=== PATIENT | male | born 1960 | race Caucasian/White ===

== ENCOUNTER 2024-01-18 01:31 | Inpatient (IN) ==
[2024-01-18] MEDS ORDERED: Patient's ALLERGY Info needs ENTERED STA (01:38)
--- NOTE | 2024-01-18 02:04 | Emergency Department Note ---
Impression & Plan Bacteremia, Urinary tract infection, Elevated troponin, Acute non-ST elevation myocardial infarction (NSTEMI), Pneumonia involving left lung ED Provider Note NAME: YANIQUE DUGGAN AGE: 63 SEX: M : 1960 ARRIVES VIA: Walk-In INFORMANT: Patient, ED PROVIDER(S): Cornelio Sauceda MD CHIEF COMPLAINT: Chills, call back, bacteremia MEDICAL DECISION MAKING: Patient presents due to concern for bacteremia. IV was established and blood work was obtained. Repeat urinalysis and blood cultures deferred at this time as they were obtained earlier in the day. Patient did have the blood work completed along with a procalcitonin and lactic acid. Patient was ordered 2 L of IV fluids and Ofirmev. I did speak with the main hospital pharmacist Lambert Reynolds and after reviewing the blood culture and recommend starting ertapenem at this time. MRSA swab also added as a precaution. Additional 500 of IV fluids ordered to be for 30 cc/kg bolus. Patient's blood work shows a normal white count hemoglobin 13.4 with a normal platelet count. Kidney function unremarkable hyponatremia at 130 but patient with elevated blood sugar at 515. Magnesium of 1.6. Patient's troponin is 4063. Patient's EKG does not show obvious STEMI. Further history was gathered and the patient does have a prior history of CAD status post stent 2008. Patient not taking medications other than aspirin.Patient was currently without chest pain or shortness of breath. Patient states that he was having some chest pains when he had his chills earlier in the evening but currently does not have it. The patient denies any shortness of breath or cough. Screening chest x-ray was first was performed which showed concern for left-sided pneumonia. Given the patient's borderline hypoxia and elevated troponin a CT angiography of the chest was ordered. BioFire also added. I did speak with the on-call hospital service Dr. Shell and the patient was admitted to the medicine service. Heparin ordered by the inpatient service. BioFire negative. CT angiography of the chest that showed left-sided pneumonia without evidence of PE. Critical Care: I have personally spent 35 minutes of critical care time in direct management of this patient. This includes bedside care, interpretation of diagnostic studies, and testing, discussion with consultants, patient, and family members, and other require inpatient management activities. This 35 minutes is in excess of all separately billable procedures. Discussion w/ other healthcare providers: Jay Reynolds, Pharm.D. Dr. Shell inpatient medicine service [facility] Prior /Outside records reviewed: None Differential diagnosis: Bacteremia, viral syndrome, otitis, pharyngitis, pneumonia, influenza, meningitis, urinary tract infection, sepsis, bacteremia, as well as other pathologies. Diagnostics, as interpreted by me: ECG: Sinus tachycardia, rate of 136, normal intervals, normal axis no obvious STEMI. Cardiac monitoring: An order was placed for continuous cardiac monitoring. The monitor shows a rate of 136 with tachycardic and regular rhythm. Patient was placed on pulse oximetry Medical decision rules: None Imaging studies: I informally interpreted the patient's chest x-ray shows concern for left-sided pneumonia with formal report to follow. HPI: Patient presents due to concern for positive blood culture. The patient was called and advised to come back after having a positive blood culture. Patient denies any shortness of breath or chest pains. Patient denies any falls or trauma. The patient reports that he did have some chills this past evening and felt like he was having associated sweats. Patient had been seen earlier in the day for similar symptoms. The patient did note that last week he had some increased urination but did not think as much of it but then started having associated hematuria this past Tuesday. Patient states that he was out working on a project and had some increased hematuria so he stopped doing any heavy lifting. The patient has a prior history of kidney stones and thought it might be related to this although he was not having the associated back pain. Patient had been seen in the emergency department earlier in the day had fairly unremarkable workup with the exception of an elevated procalcitonin and was discharged on Bactrim. Patient states that he did take this this evening. Patient denies any abdominal pain or flank pain. PAST MEDICAL HISTORY: See Below PAST SURGICAL HISTORY: See Below SOCIAL HISTORY: See Below HOME MEDICATIONS: See Below ALLERGIES: See Below VITALS: See Below PHYSICAL EXAMINATION: GENERAL: NAD, non-toxic. EYE EXAM: Normal conjunctiva. PERRL, no anisocoria and EOM's grossly intact w/o pain. OROPHARYNX: Moist mucus membranes, grossly normal dentition. NECK: Trachea midline, no stridor. Supple, no nuchal rigidity, no adenopathy, non-tender. No signs of meningismus. FROM of the neck with good chin to chest and neck extension. LUNGS: Clear to auscultation. Normal chest wall mechanics. HEART: Tachycardic and regular, no MRG. ABDOMEN: Abdomen soft, non-tender, no masses, no rebound or guarding. BACK: No CVA TTP. SKIN: No rashes and no bruising. UPPER EXTREMITIES: Upper extremities are grossly normal. LOWER EXTREMITIES: Grossly normal, no edema. NEURO EXAM: A&O x3, cranial nerves II-XII grossly intact, normal speech, moves all 4 extremities. Past Med/Surg History Problem List (Updated 01/18/24 @ 05:30 by Cornelio Sauceda MD) Pneumonia involving left lung (Acute) Acute non-ST elevation myocardial infarction (NSTEMI) (Acute) Elevated troponin (Acute) Bacteremia (Acute) Hyperglycemia (Acute) Prostatitis (Acute) Urinary tract infection (Acute) Hematuria (Acute) Medical History Kidney stone Social History Smoking Status: Never smoker Preferred Language: Azeri Feels Safe at Home: Yes Allergies Allergies Allergy/AdvReac Type Severity Reaction Status Date / Time No Known Allergies Allergy Verified 01/18/24 03:35 Home Meds Previous Rx's Medication Instructions Recorded sulfamethoxazole 800 1 tab PO Q12H 14 days #28 tabs 01/17/24 mg-trimethoprim 160 mg tablet (Bactrim DS) Results & Data (ED) Vital Signs Vital Signs - 24 hr 01/18/24 01:38 01/18/24 02:00 01/18/24 02:04 Temperature 36.5 C 38.6 C H Temperature Source Temporal Artery Scan Oral Pulse Rate 151 H 135 H Pulse Rate from SpO2 Sensor 135 H Respiratory Rate 18 28 H Respiratory Effort / Characteristics Non-Labored Spontaneous Respiratory Depth Normal Respiratory Pattern Regular Blood Pressure 111/58 L 105/70 Blood Pressure Mean 75 84 Blood Pressure Position Lying Pulse Oximetry 93 91 Oxygen Delivery Method Room Air Room Air Oxygen Flow Rate Sepsis Recent Fever Within 48 Hours No Sepsis New/Unexplained Change in Mental Status No Sepsis Action Taken by Nursing No Action Required 01/18/24 02:04 01/18/24 02:30 01/18/24 03:00 Temperature Temperature Source Pulse Rate 137 H 129 H 123 H Pulse Rate from SpO2 Sensor 129 H 124 H Respiratory Rate 22 25 H Respiratory Effort / Characteristics Respiratory Depth Respiratory Pattern Blood Pressure Blood Pressure Mean Blood Pressure Position Pulse Oximetry 91 92 Oxygen Delivery Method Room Air Oxygen Flow Rate Sepsis Recent Fever Within 48 Hours Sepsis New/Unexplained Change in Mental Status Sepsis Action Taken by Nursing 01/18/24 03:21 01/18/24 03:42 01/18/24 03:54 Temperature Temperature Source Pulse Rate 127 H 117 H 117 H Pulse Rate from SpO2 Sensor 127 H 116 H 117 H Respiratory Rate 26 H 22 20 Respiratory Effort / Characteristics Respiratory Depth Respiratory Pattern Blood Pressure Blood Pressure Mean Blood Pressure Position Pulse Oximetry 92 96 97 Oxygen Delivery Method Room Air Nasal Cannula Nasal Cannula Oxygen Flow Rate 2 2 Sepsis Recent Fever Within 48 Hours Sepsis New/Unexplained Change in Mental Status Sepsis Action Taken by Nursing 01/18/24 03:57 01/18/24 03:59 01/18/24 04:12 Temperature 37.6 C H Temperature Source Oral Pulse Rate 119 H 118 H Pulse Rate from SpO2 Sensor 120 H 118 H Respiratory Rate 22 23 Respiratory Effort / Characteristics Respiratory Depth Respiratory Pattern Blood Pressure 99/69 L Blood Pressure Mean 79 Blood Pressure Position Pulse Oximetry 97 93 Oxygen Delivery Method Nasal Cannula Room Air Oxygen Flow Rate 2 Sepsis Recent Fever Within 48 Hours Sepsis New/Unexplained Change in Mental Status Sepsis Action Taken by [facility] Medications Current Medication List: was personally reviewed by me Laboratory Data Attestation: I reviewed the patient's lab results. 01/18/24 02:04 01/18/24 02:04 Lab Results 01/18/24 01/18/24 01/18/24 Range/Units 02:04 03:47 04:04 WBC 5.12 (4.8-10.8) K/ul RBC 4.57 L (4.70-6.10) M/uL Hgb 13.4 L (14.0-18.0) g/dl Hct 38.7 L (42.0-52.0) % MCV 84.7 (80.0-100.0) fL MCH 29.3 (25.0-34.0) pg MCHC 34.6 (32.0-36.0) g/dL RDW Std Deviation 35.8 L (36.4-46.3) fL RDW Coeff of [place] 11.9 (11.5-14.5) % Plt Count 131 (130-400) K/uL MPV 9.9 (9.4-12.4) fL Immature Gran % (Auto) 0.8 % Neut % (Auto) 85.5 % Lymph % (Auto) 4.3 % [place] % (Auto) 9.0 % Eos % (Auto) 0.0 % Baso % (Auto) 0.4 % Neut # (Auto) 4.38 (1.40-6.50) K/uL Lymph # (Auto) 0.22 L (1.20-3.40) K/uL [place] # (Auto) 0.46 (0.11-0.59) K/uL Eos # (Auto) 0.00 (0.00-0.50) K/uL Baso # (Auto) 0.02 (0.00-0.20) K/uL Immature Gran # (Auto) 0.04 (0.01-0.20) K/uL PT 10.8 (9.0-12.0) Seconds INR 1.0 (0.9-1.1) APTT 26 (21-31) Seconds PTT Ratio 1.0 Sodium 130 L (136-145) mmol/L Potassium 4.4 (3.5-5.1) mmol/L Chloride 97 L (98-107) mmol/L Carbon Dioxide 21 (21-32) mmol/L Anion Gap 12 H (3-11) BUN 24 H (6-23) mg/dl Creatinine 1.11 (0.6-1.4) mg/dl Est Cr Clr Drug Dosing 67.6 ml/min Est GFR ( Amer) 82.6 ml/min Est GFR (Non-Af Amer) 71.3 ml/min BUN/Creatinine Ratio 21.6 H (10-20) Glucose 515 H* (70-99(Fasting)) mg/dl Lactate 1.4 (0.4-2.0) mmol/L Calcium 8.7 (8.6-10.3) mg/dl Magnesium 1.6 L (1.7-2.4) mg/dl Total Bilirubin 0.4 D (0.2-1.0) mg/dl Direct Bilirubin 0.2 (0-0.2) mg/dl AST 34 (13-39) U/L ALT 19 (7-52) U/L Alkaline Phosphatase 102 (34-104) U/L Troponin I High Sens 4063.1 H* 7103.5 H* D (0-20) pg/ml Total Protein 6.1 (6.0-8.3) gm/dl Albumin 3.5 (3.4-5.0) gm/dl Procalcitonin 9.39 H (0-0.5) ng/ml Adenovirus (PCR) Not Detected (NotDetected) B. pertussis DNA (PCR) Not Detected (NotDetected) B.parapertussis DNA PCR Not Detected (NotDetected) C. pneumoniae DNA (PCR) Not Detected (NotDetected) Coronavirus OC43 (PCR) Not Detected (NotDetected) Coronavirus HKU1 (PCR) Not Detected (NotDetected) Coronavirus 229E (PCR) Not Detected (NotDetected) SARS-CoV-2 (PCR) Not Detected (NotDetected) Coronavirus NL63 (PCR) Not Detected (NotDetected) Human Metapneumovir PCR Not Detected (NotDetected) Influenza Type A (PCR) Not Detected (NotDetected) Influenza Type B (PCR) Not Detected (NotDetected) M. pneumoniae (PCR) Not Detected (NotDetected) Parainfluenza 1 (PCR) Not Detected (NotDetected) Parainfluenza 2 (PCR) Not Detected (NotDetected) Parainfluenza 3 (PCR) Not Detected (NotDetected) Parainfluenza 4 (PCR) Not Detected (NotDetected) RSV (PCR) Not Detected (NotDetected) Entero/Rhino (PCR) Not Detected (NotDetected) Administered Medications Magnesium Sulfate/Dextrose (Magnesium Sulfate / D5w) 1 gm in 100 mls @ 50 mls/hr IV Q2H MIN Stop: 01/18/24 07:14 Last Admin: 01/18/24 03:40 Dose: 50 mls/hr Documented By: GIL Heparin Sodium/Dextrose (Heparin Sodium/Dextrose) 25,000 units in 500 mls @ 25 mls/hr IV .Q20H [facility]; Protocol Stop: 02/17/24 03:29 Last Admin: 01/18/24 03:44 Dose: 1,250 units/hr, 25 mls/hr Documented By: GIL Co-signed By: EMB Discontinued Medications Aspirin (Aspirin 81 Mg Chew) 324 mg PO NOW STA Stop: 01/18/24 03:13 Last Admin: 01/18/24 03:39 Dose: Not Given Documented By: GIL Aspirin (Aspirin 325 Mg Ectab) 325 mg PO NOW STA Stop: 01/18/24 03:44 Last Admin: 01/18/24 03:58 Dose: 325 mg Documented By: GIL Carvedilol (Carvedilol 3.125 Mg Tab) 3.125 mg PO NOW ONE Stop: 01/18/24 03:13 Last Admin: 01/18/24 03:20 Dose: Not Given Documented By: GIL Heparin Sodium/Dextrose (Heparin Iv Adult Wt-Based Standard *No* Initial Bolus Protocol) 1 each IV ONE STA; Protocol Stop: 01/18/24 03:15 Last Admin: 01/18/24 03:41 Dose: 1 each Documented By: GIL Sodium Chloride (Nss) 1,000 mls @ 999 mls/hr IV .Q1H1M MIN Stop: 01/18/24 04:00 Last Infusion: 01/18/24 03:50 Dose: Infused Documented By: Admin: 01/18/24 02:49 Dose: 999 mls/hr Documented By: Infusion: 01/18/24 02:49 Dose: Infused Documented By: Admin: 01/18/24 02:18 Dose: 999 mls/hr Documented By: GIL Acetaminophen (Ofirmev) 1,000 mg in 100 mls @ 400 mls/hr IV NOW STA Stop: 01/18/24 02:12 Last Infusion: 01/18/24 02:48 Dose: Infused Documented By: Admin: 01/18/24 02:18 Dose: 400 mls/hr Documented By: GIL Piperacillin Sod/Tazobactam Sod (Zosyn) 4.5 gm in 100 mls @ 200 mls/hr IV NOW ONE Stop: 01/18/24 02:30 Last Admin: 01/18/24 02:13 Dose: Not Given Documented By: GIL Ertapenem (Invanz) 10 mls @ 2 mls/min IV NOW STA Stop: 01/18/24 02:08 Last Admin: 01/18/24 02:18 Dose: 2 mls/min Documented By: GIL Sodium Chloride (Nss) 500 mls @ 999 mls/hr IV .Q31M ONE Stop: 01/18/24 02:38 Last Infusion: 01/18/24 03:50 Dose: Infused Documented By: Admin: 01/18/24 02:49 Dose: 999 mls/hr Documented By: GIL Insulin Human Regular (Novolin-R Insulin Per Unit Charge) 5 units IV NOW STA Stop: 01/18/24 03:03 Last Admin: 01/18/24 03:37 Dose: 5 units Documented By: GIL Co-signed By: LAKEISHA Ioversol (Optiray 320 125ml) 125 ml IV ONCE ONE Stop: 01/18/24 03:20 Last Admin: 01/18/24 03:19 Dose: 118 ml Documented By: JESUS Imaging Data Radiologist's Impression: Chest CTA 01/18/24 03:04 Exam(s): CTA CHEST IV Amt: 118 ml optiray 320 EXAM: CT Angiography Chest With Intravenous Contrast CLINICAL HISTORY: Reason for exam: PE. TECHNIQUE: Axial computed tomographic angiography images of the chest with intravenous contrast. CTDI is 36.96 mGy and DLP is 604.23 mGy-cm. Automated exposure control was utilized for the study. A dose lowering technique was utilized adhering to the principles of ALARA. MIP reconstructed images were created and reviewed. COMPARISON: No relevant prior studies available. FINDINGS: Pulmonary arteries: Unremarkable. No pulmonary embolism. Aorta: Atherosclerotic changes of the aorta. No thoracic aortic aneurysm. Lungs: Patchy ground-glass airspace consolidation throughout the LEFT lung, consistent with multilobar pneumonia. Pleural space: Unremarkable. No significant effusion. No pneumothorax. Heart: Cardiomegaly. No significant pericardial effusion. No evidence of RV dysfunction. Bones/joints: Degenerative changes of the spine. No acute fracture. No dislocation. Soft tissues: Unremarkable. Lymph nodes: Unremarkable. No enlarged lymph nodes. Liver: Hepatic steatosis. IMPRESSION: 1. No pulmonary embolism. 2. Patchy ground-glass airspace consolidation throughout the LEFT lung, consistent with multilobar pneumonia. Electronically signed by: Jona Wadsworth MD 01/18/24 04:15 AM Discharge Plan Visit Data Chief Complaint: Infection Stated Complaint: ANTIBIOTICS RECALL ED Provider: Cornelio Sauceda Discharge Problem: Bacteremia, Urinary tract infection, Elevated troponin, Acute non-ST elevation myocardial infarction (NSTEMI), Pneumonia involving left lung Forms Stand Alone Forms: [employer] Prescriptions Prescriptions: No Action sulfamethoxazole-trimethoprim [Bactrim DS] 800-160 mg tablet 1 tab PO Q12H 14 Days Qty: 28 0RF Referrals Referrals: Ander Price DO [Primary Care Provider] - Discharge Problem: Urinary tract infection Qualifiers: Urinary tract infection type: site unspecified Hematuria presence: with hematuria Qualified Code(s): N39.0 - Urinary tract infection, site not specified Pneumonia involving left lung Qualifiers: Pneumonia type: due to unspecified organism Lung location: unspecified part of lung Qualified Code(s): J18.9 - Pneumonia, unspecified organism
[2024-01-18] MEDS: PIPERACILLIN/TAZOBACTAM 4.5 GM/100 ML BAG IV ONE (02:13)
[2024-01-18] MEDS: ERTAPENEM SODIUM 10 ML IV STA (02:18)
[2024-01-18] MEDS: SODIUM CHLORIDE 0.9% 1,000 ML IV SCH ×2 (02:18→06:42)
[2024-01-18] MEDS: ACETAMINOPHEN 1,000 MG/100 ML VIAL IV STA (02:18)
[2024-01-18 02:36] LABS: Basophils # (auto) 0.02 K/uL (0.00-0.20); Basophils % (auto) 0.4 %; Hematocrit (blood only) 38.7 % (42.0-52.0); Hemoglobin 13.4 g/dl (14.0-18.0); Immature Granulocytes # (auto) 0.04 K/uL (0.01-0.20); Immature Granulocytes % (auto) 0.8 %; Lymphocytes # (auto) 0.22 K/uL (1.20-3.40); Lymphocytes % (auto) 4.3 %; Mean Corpuscular Hemoglobin 29.3 pg (25.0-34.0); Mean Corpuscular Hgb Conc 34.6 g/dL (32.0-36.0); Mean Corpuscular Volume 84.7 fL (80.0-100.0); Mean Platelet Volume 9.9 fL (9.4-12.4); Monocytes # (auto) 0.46 K/uL (0.11-0.59); Neutrophils # (auto) 4.38 K/uL (1.40-6.50); Neutrophils % (auto) 85.5 %; Platelet Count 131 K/uL (130-400); RDW Coefficient of Variation 11.9 % (11.5-14.5); RDW Standard Deviation 35.8 fL (36.4-46.3); Red Blood Count 4.57 M/uL (4.70-6.10); White Blood Count 5.12 K/ul (4.8-10.8)
[2024-01-18] MEDS: SODIUM CHLORIDE 0.9% 500 ML IV ONE (02:49)
[2024-01-18 03:01] LABS: Albumin Level 3.5 gm/dl (3.4-5.0); BUN Creatinine Ratio 21.6 (10-20); Bilirubin Direct 0.2 mg/dl (0-0.2); Bilirubin,Total 0.4 mg/dl (0.2-1.0); Calcium 8.7 mg/dl (8.6-10.3); Creatinine Clr Calc Pharmacy 67.6 ml/min; Est GFR (African American) 82.6 ml/min; Est GFR (Non-African American) 71.3 ml/min; Magnesium 1.6 mg/dl (1.7-2.4); Potassium 4.4 mmol/L (3.5-5.1); Total Protein 6.1 gm/dl (6.0-8.3); Troponin I High Sensitivity 4063.1 pg/ml (0-20)
[2024-01-18] MEDS: OPTIRAY 320 125ml IV ONE (03:19)
[2024-01-18] MEDS: carvediloL 3.125 MG TAB PO ONE (03:20)
[2024-01-18] MEDS: NovoLIN-R INSULIN PER UNIT CHARGE IV STA (03:37)
[2024-01-18] MEDS: ASPIRIN 81 MG CHEW PO STA (03:39)
[2024-01-18] MEDS: MAGNESIUM SULFATE / D5W 1 GM/100 ML BAG IV SCH (03:40)
[2024-01-18] MEDS: Heparin IV Adult Wt-Based Standard *NO* INITIAL Bolus Protocol IV STA (03:41)
[2024-01-18 03:44] LABS: Partial Thromboplastin Time 26 Seconds (21-31); Prothrombin Time 10.8 Seconds (9.0-12.0)
[2024-01-18] MEDS: HEPARIN SODIUM/DEXTROSE 25,000 UNITS/500 ML BAG IV SCH (03:44)
--- NOTE | 2024-01-18 03:50 | History & Physical Report ---
Date of Service January 18, 2024 Assessment & Plan (1) Bacteremia: Plan: 63-year-old male with past med history significant for diabetes, history of multiple kidney stones, hypertension and CAD s/p stent in 2008 as per patient but currently not taking any medication except aspirin for last few months came to the ER in the morning because of hematuria last Tuesday and Tuesday and a lot of shaking chills and was worried about kidney stone and found to have UTI and possible prostatitis and hyperglycemia and was also tachycardic. Received fluids and Rocephin and was discharged on p.o. Bactrim as patient seemed to have appointment with his family doctor the next day. But the blood cultures came back positive for gram-negative bacilli and patient was called to come back to ER. Patient spiking temperature in the ER. Heart rate in 130s. Denies any ch est pain or shortness of breath. Denies palpitations. Denies any headache currently. No runny nose or sore throat. No earache. Vision is okay. Currently no nausea. Patient states initially had back and flank pain but currently no pains. Has some burning micturition. Currently no hematuria. Normal bowel movements. No swelling in the legs. No rash. Patient states because he lost weight his blood pressure is okay currently. Used to take Januvia and metformin but stopped 2 months ago. Used to be on take statin and generic Coreg but stopped about a month ago. Says he has an appointment tomorrow with his family doctor and he wants to start back on all the required medications. Bacteremia Gram-negative bacilli bacteremia Acute UTI Possible sepsis Has fever and tachycardia and leukocytosis Lactic acid okay at 1.4 Aggressive fluids Received Invanz will continue with meropenem CTA chest came back as multifocal pneumonia Added Doxy Resp biofire negative Follow the cultures Close monitor Non-ST elevated [place] Troponin 4063 Patient asymptomatic History of CAD s/p stent in 2008 as per patient Except aspirin not taking other medications Started on IV heparin Continue aspirin Start Coreg 3.125 mg twice daily with holding parameters and Lipitor 40 mg daily Follow serial cardiac enzymes and echo in the lipid profile N.p.o. Cardiac consult Tachycardia Possibly from sepsis Lactic acid okay at 1.4 Possible from dehydration from hyperglycemia and also stopped taking Coreg about a month ago Getting fluids and antibiotics Starting Coreg as above. Will closely monitor CTA chest No PE, Follow echo Hyperglycemia History of diabetes Stopped taking his metformin and Januvia about 2 months ago Will give a dose of IV insulin [address] on Lantus and sliding scale Monitor blood sugars closely Follow HbA1c levels Glycemic pharmacy consult Possible prostatitis Kidney stones CT scan done in the morning showed nonobstructing bilateral nephrolithiasis No ureteral calculi or hydronephrosis Prostatomegaly with findings of chronic outlet obstruction Will consult urology in a.m. Mild splenomegaly on CAT scan Needs follow-up DVT prophylaxis IV heparin Disposition Telemetry Full code. History of Present Illness Chief Complaint: Urinary symptoms and bacteremia Primary Care Provider: Ander Price DO 63-year-old male with past med history significant for diabetes, history of multiple kidney stones, hypertension and CAD s/p stent in 2008 as per patient but currently not taking any medication except aspirin for last few months came to the ER in the morning because of hematuria last Tuesday and Tuesday and a lot of shaking chills and was worried about kidney stone and found to have UTI and possible prostatitis and hyperglycemia and was also tachycardic. Received fluids and Rocephin and was discharged on p.o. Bactrim as patient seemed to have appointment with his family doctor the next day. But the blood cultures came back positive for gram-negative bacilli and patient was called to come back to ER. Patient spiking temperature in the ER. Heart rate in 130s. Denies any chest pain or shortness of breath. Denies palpitations. Denies any headache currently. No runny nose or sore throat. No earache. Vision is okay. Currently no nausea. Patient states initially had back and flank pain but currently no pains. Has some burning micturition. Currently no hematuria. Normal bowel movements. No swelling in the legs. No rash. Patient states because he lost weight his blood pressure is okay currently. Used to take Januvia and metformin but stopped 2 months ago. Used to be on take statin and generic Coreg but stopped about a month ago. Says he has an appointment tomorrow with his family doctor and he wants to start back on all the required medications. Past medical history. As mentioned above. Past surgical history. Lithotripsy twice cardiac cath status post and placement. 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 Social history. Smokes cigars once in a while. Drinks 2 beers couple times a week. Denies any drug use Family history. Mother had breast cancer. Father had heart disorder. Father had heart disorder. Allergies Allergy/AdvReac Type Severity Reaction Status Date / Time No Known Allergies Allergy Verified 01/18/24 03:35 Home Medications Medication Instructions Recorded Confirmed Type sulfamethoxazole 800 1 tab PO Q12H 14 days #28 tabs 01/17/24 Rx mg-trimethoprim 160 mg tablet (Bactrim DS) Past Med/Surg History Problem List (Updated 01/18/24 @ 05:30 by Cornelio Sauceda MD) Pneumonia involving left lung (Acute) Acute non-ST elevation myocardial infarction (NSTEMI) (Acute) Elevated troponin (Acute) Bacteremia (Acute) Hyperglycemia (Acute) Prostatitis (Acute) Urinary tract infection (Acute) Hematuria (Acute) Medical History Kidney stone Social History Smoking Status: Never smoker Preferred Language: Polish Feels Safe at Home: Yes Review of Systems Review of Systems: All systems reviewed & are unremarkable except as noted in HPI & below Physical Exam Physical Exam: General- Not in acute distress Head- atraumatic Eyes- PERRL. ENT- oropharynx clear Neck- supple, no JVD. Lungs- clear to auscultation no wheezing or crackles Heart- regular rhythm;Tachycardia no murmur, no gallop. Abdomen- normal bowel sounds, soft, nontender, no distension Extremities- no pretibial edema, no erythema seen Neuro- alert, oriented PERRL, no facial palsy; no dysarthria; moves extremities Results & Data Results & Data Vital Signs (Past 12 Hours) Vital Signs Temp Pulse Resp BP Pulse Ox O2 Del Method 01/18/24 02:30 129 H 22 91 01/18/24 02:04 137 H 01/18/24 02:04 38.6 C H 01/18/24 02:00 135 H 28 H 105/70 91 Room Air 01/18/24 01:38 36.5 C 151 H 18 111/58 L 93 Room Air Diagnostic Findings Laboratory Results WBC 5.12 K/ul (4.8-10.8) 01/18/24 02:04 RBC 4.57 M/uL (4.70-6.10) L 01/18/24 02:04 Hgb 13.4 g/dl (14.0-18.0) L 01/18/24 02:04 Hct 38.7 % (42.0-52.0) L 01/18/24 02:04 MCV 84.7 fL (80.0-100.0) 01/18/24 02:04 MCH 29.3 pg (25.0-34.0) 01/18/24 02:04 MCHC 34.6 g/dL (32.0-36.0) 01/18/24 02:04 RDW Std Deviation 35.8 fL (36.4-46.3) L 01/18/24 02:04 RDW Coeff of [place] 11.9 % (11.5-14.5) 01/18/24 02:04 Plt Count 131 K/uL (130-400) 01/18/24 02:04 MPV 9.9 fL (9.4-12.4) 01/18/24 02:04 Immature Gran % (Auto) 0.8 % 01/18/24 02:04 Neut % (Auto) 85.5 % 01/18/24 02:04 Lymph % (Auto) 4.3 % 01/18/24 02:04 [place] % (Auto) 9.0 % 01/18/24 02:04 Eos % (Auto) 0.0 % 01/18/24 02:04 Baso % (Auto) 0.4 % 01/18/24 02:04 Neut # (Auto) 4.38 K/uL (1.40-6.50) 01/18/24 02:04 Lymph # (Auto) 0.22 K/uL (1.20-3.40) L 01/18/24 02:04 [place] # (Auto) 0.46 K/uL (0.11-0.59) 01/18/24 02:04 Eos # (Auto) 0.00 K/uL (0.00-0.50) 01/18/24 02:04 Baso # (Auto) 0.02 K/uL (0.00-0.20) 01/18/24 02:04 Immature Gran # (Auto) 0.04 K/uL (0.01-0.20) 01/18/24 02:04 PT 10.8 Seconds (9.0-12.0) 01/18/24 02:04 INR 1.0 (0.9-1.1) 01/18/24 02:04 APTT 26 Seconds (21-31) 01/18/24 02:04 PTT Ratio 1.0 01/18/24 02:04 Sodium 130 mmol/L (136-145) L 01/18/24 02:04 Potassium 4.4 mmol/L (3.5-5.1) 01/18/24 02:04 Chloride 97 mmol/L (98-107) L 01/18/24 02:04 Carbon Dioxide 21 mmol/L (21-32) 01/18/24 02:04 Anion Gap 12 (3-11) H 01/18/24 02:04 BUN 24 mg/dl (6-23) H 01/18/24 02:04 Creatinine 1.11 mg/dl (0.6-1.4) 01/18/24 02:04 Est Cr Clr Drug Dosing 67.6 ml/min 01/18/24 02:04 Est GFR ( Amer) 82.6 ml/min 01/18/24 02:04 Est GFR (Non-Af Amer) 71.3 ml/min 01/18/24 02:04 BUN/Creatinine Ratio 21.6 (10-20) H 01/18/24 02:04 Glucose 515 mg/dl (70-99(Fasting)) H* 01/18/24 02:04 Lactate 1.4 mmol/L (0.4-2.0) 01/18/24 02:04 Calcium 8.7 mg/dl (8.6-10.3) 01/18/24 02:04 Magnesium 1.6 mg/dl (1.7-2.4) L 01/18/24 02:04 Total Bilirubin 0.4 mg/dl (0.2-1.0) D 01/18/24 02:04 Direct Bilirubin 0.2 mg/dl (0-0.2) 01/18/24 02:04 AST 34 U/L (13-39) 01/18/24 02:04 ALT 19 U/L (7-52) 01/18/24 02:04 Alkaline Phosphatase 102 U/L (34-104) 01/18/24 02:04 Troponin I High Sens 4063.1 pg/ml (0-20) H* 01/18/24 02:04 Total Protein 6.1 gm/dl (6.0-8.3) 01/18/24 02:04 Albumin 3.5 gm/dl (3.4-5.0) 01/18/24 02:04 Procalcitonin 9.39 ng/ml (0-0.5) H 01/18/24 02:04 ECG Additional Comments: ECG sinus tachycardia rate of 136. Nonspecific ST changes in anterior leads Code Status & VTE Plan VTE Prophylaxis Plan VTE Prophylaxis will be ordered: Yes
[2024-01-18] MEDS: ASPIRIN 325 MG ECTAB PO STA (03:58)
--- NOTE | 2024-01-18 04:15 | CT Scan Report ---
Exam(s): CTA CHEST IV Amt: 118 ml optiray 320 EXAM: CT Angiography Chest With Intravenous Contrast CLINICAL HISTORY: Reason for exam: PE. TECHNIQUE: Axial computed tomographic angiography images of the chest with intravenous contrast. CTDI is 36.96 mGy and DLP is 604.23 mGy-cm. Automated exposure control was utilized for the study. A dose lowering technique was utilized adhering to the principles of ALARA. MIP reconstructed images were created and reviewed. COMPARISON: No relevant prior studies available. FINDINGS: Pulmonary arteries: Unremarkable. No pulmonary embolism. Aorta: Atherosclerotic changes of the aorta. No thoracic aortic aneurysm. Lungs: Patchy ground-glass airspace consolidation throughout the LEFT lung, consistent with multilobar pneumonia. Pleural space: Unremarkable. No significant effusion. No pneumothorax. Heart: Cardiomegaly. No significant pericardial effusion. No evidence of RV dysfunction. Bones/joints: Degenerative changes of the spine. No acute fracture. No dislocation. Soft tissues: Unremarkable. Lymph nodes: Unremarkable. No enlarged lymph nodes. Liver: Hepatic steatosis. IMPRESSION: 1. No pulmonary embolism. 2. Patchy ground-glass airspace consolidation throughout the LEFT lung, consistent with multilobar pneumonia. Electronically signed by: Jona Wadsworth MD 01/18/24 04:15 AM
[2024-01-18 04:55] LABS: Adenovirus PCR Not Detected (NotDetected); Bordetella parapertussis PCR Not Detected (NotDetected); Bordetella pertussis PCR Not Detected (NotDetected); Chlamydia pneumoniae PCR Not Detected (NotDetected); Coronavirus 229E PCR Not Detected (NotDetected); Coronavirus CoV-2 (COVID19)PCR Not Detected (NotDetected); Coronavirus HKU1 PCR Not Detected (NotDetected); Coronavirus NL63 PCR Not Detected (NotDetected); Coronavirus OC43PCR Not Detected (NotDetected); Human Metapneumovirus PCR Not Detected (NotDetected); Influenza A PCR Not Detected (NotDetected); Influenza B PCR Not Detected (NotDetected); Mycoplasma pneumoniae PCR Not Detected (NotDetected); Parainfluenza Virus 1 PCR Not Detected (NotDetected); Parainfluenza Virus 2 PCR Not Detected (NotDetected); Parainfluenza Virus 3 PCR Not Detected (NotDetected); Parainfluenza Virus 4 PCR Not Detected (NotDetected); Respiratory Syncytial VirusPCR Not Detected (NotDetected); Rhinovirus/Enterovirus PCR Not Detected (NotDetected)
[2024-01-18] MEDS ORDERED: CARBOHYDRATES FOR HYPOGLYCEMIA PO PRN (05:53)
[2024-01-18] MEDS ORDERED: GLUCOSE 10 TAB/TUBE PO PRN (05:53)
[2024-01-18] MEDS ORDERED: NITROGLYCERIN SL 0.4 MG/TAB TAB SL PRN (05:53)
[2024-01-18] MEDS ORDERED: GLUCOSE 40% GEL 15 GM TUBE PO PRN (05:53)
[2024-01-18] MEDS ORDERED: PHARMACY GLYCEMIC MGMT CONSULT PRN ×2 (05:53→10:44)
[2024-01-18] MEDS ORDERED: GLUCAGON FOR INJ 1 MG VIAL SQ PRN (05:53)
[2024-01-18] MEDS ORDERED: DEXTROSE 50% 50 ML SYRINGE IV PRN (05:53)
[2024-01-18] MEDS: INSULIN ASPART PER UNIT CHARGE SC SCH ×2 (06:33→13:35)
[2024-01-18] MEDS: LANTUS PER UNIT CHARGE SQ ONE (06:35)
[2024-01-18] MEDS: DOXYCYCLINE HYCLATE 100 MG in DEXTROSE 5% MINI-B 100 ML IV SCH (07:21)
[2024-01-18 07:34] LABS: Basophils # (auto) 0.01 K/uL (0.00-0.20); Basophils % (auto) 0.2 %; Hematocrit (blood only) 33.9 % (42.0-52.0); Hemoglobin 11.9 g/dl (14.0-18.0); Immature Granulocytes # (auto) 0.04 K/uL (0.01-0.20); Immature Granulocytes % (auto) 0.8 %; Lymphocytes # (auto) 0.45 K/uL (1.20-3.40); Lymphocytes % (auto) 9.1 %; Mean Corpuscular Hemoglobin 30.2 pg (25.0-34.0); Mean Corpuscular Hgb Conc 35.1 g/dL (32.0-36.0); Monocytes # (auto) 0.65 K/uL (0.11-0.59); Monocytes % (auto) 13.2 %; Neutrophils # (auto) 3.78 K/uL (1.40-6.50); Neutrophils % (auto) 76.7 %; Platelet Count 115 K/uL (130-400); RDW Coefficient of Variation 11.9 % (11.5-14.5); RDW Standard Deviation 37.5 fL (36.4-46.3); Red Blood Count 3.94 M/uL (4.70-6.10); White Blood Count 4.93 K/ul (4.8-10.8)
--- NOTE | 2024-01-18 07:48 | XRay Report ---
XR chest 1V portable CLINICAL HISTORY: Sepsis TECHNIQUE: Single frontal radiograph of the chest was obtained. Comparison: None available at the time of this dictation. FINDINGS: No lines and tubes are seen. The cardiomediastinal silhouette is normal. Left midlung airspace opacit ies are seen. No evidence of pleural effusion or pneumothorax. IMPRESSION: Left midlung airspace opacities may represent atelectasis, pneumonia, and/or aspiration. ACT 112: Negative or not required by law. Electronically signed by: Raimundo Tabares M.D. 01/18/2024 7:46 AM
[2024-01-18 07:56] LABS: BUN Creatinine Ratio 21.7 (10-20); Calcium 6.9 mg/dl (8.6-10.3); Chol HDL Ratio 9.3 (0-5); Creatinine Clr Calc Pharmacy 81.6 ml/min; Est GFR (African American) 103.7 ml/min; Est GFR (Non-African American) 89.5 ml/min; Troponin I High Sensitivity 12462.6 pg/ml (0-20)
[2024-01-18 08:41] LABS: Estimated Average Glucose 278 mg/dl; Hemoglobin A1C 11.3 % (4.5-5.6)
[2024-01-18] MEDS: ADVANCED PROBIOTIC 625 MG CAPSULE PO SCH (10:00)
[2024-01-18] MEDS: INSULIN HUMAN REGULAR PER UNIT 5 UNITS in SYRINGE 4.95 ML IV ONE (10:11)
[2024-01-18] MEDS: INSULIN ASPART PER UNIT CHARGE SC ONE (10:20)
[2024-01-18] MEDS: MEROPENEM 500 MG in SYRINGE 0 ML IV SCH (10:22)
[2024-01-18] MEDS: ATORVASTATIN 40 MG TAB PO SCH (10:26)
[2024-01-18] MEDS: carvediloL 3.125 MG TAB PO SCH (10:28)
[2024-01-18] MEDS: ACETAMINOPHEN 325 MG TAB PO PRN (10:31)
--- NOTE | 2024-01-18 10:57 | Cardiology Consultation ---
Date of Consultation January 18, 2024 Assessment & Plan (1) Acute non-ST elevation myocardial infarction (NSTEMI): (2) Cardiomyopathy: (3) Sepsis due to Gram negative bacteria: (4) Urinary tract infection: (5) Hyperglycemia: (6) Kidney stone: (7) Noncompliance: Plan 63-year-old male presenting with gram negative sepsis. Blood and urine cultures positive for gram-negative rods. Suspect secondary to underlying nephrolithiasis. Cardiology consultation requested due to elevated troponin. Echocardiogram with severe LV systolic dysfunction and regional wall motion abnormalities suggestive of Takotsubo cardiomyopathy versus multivessel ischemic heart disease. Patient is asymptomatic without anginal symptoms. No evidence of decompensated heart failure, however, CT of the chest with possible vascular congestion. Will discuss cutting back IV hydration with primary service. Consider addition of IV insulin infusion due to persistent hyperglycemia. Continue IV heparin, aspirin, statin, and carvedilol. Trend high-sensitivity troponin. Repeat limited 2D transthoracic echocardiogram in 24 to 48 hours for reassessment of LV function. Further ischemic evaluation when patient has recovered from gram-negative sepsis. I spent a total of 70 minutes on the date of service in preparation, delivery, and documentation of the care provided to this patient, excluding any time spent in the performance of separately billed services. History of Present Illness Reason for Consultation: NSTEMI Requesting Physician: Dr. Shell Attending Physician: Pio Guzman MD History of Present Illness 63-year-old male presented to the emergency department due to concerns regarding outpatient positive blood culture. He was advised to proceed to the ER. Notes fever, shaking chills and rigors over the past few days. Denies chest discomfort or unusual shortness of breath, however, notes some mild chest shortness associated with shaking chills. History of kidney stones since age 19. Notes intermittent hematuria over the past week. Urine and blood cultures growing gram-negative bacilli. Denies orthopnea, PND, or lower extremity edema. In general he is an active person and works full-time at [employer]. Denies any functional limitations. Admits to noncompliance with medical therapies over the past few weeks. History of coronary disease status post stenting in 2008. Follows with supervisor pressing department, Dr. Wiseman in [place]. Currently resting comfortably lying supine without complaints. Bedside echocardiogram demonstrating severe LV systolic dysfunction with a large wall motion abnormality accompanying encompassing the mid and apical segments with relative sparing of the basal segments. Findings suggest Allergies Allergy/AdvReac Type Severity Reaction Status Date / Time No Known Allergies Allergy Verified 01/18/24 03:35 Home Medications Medication Instructions Recorded Confirmed Type sulfamethoxazole 800 1 tab PO Q12H 14 days #28 tabs 01/17/24 Rx mg-trimethoprim 160 mg tablet (Bactrim DS) Patient History Medical History Kidney stone Social History Smoking Status: Never smoker Tobacco Type: Cigars Cigarettes Per Day: smokes cigars bi-weekly, light use; Second Hand Exposure: No; Do You Dip or Chew Tobacco: No; Tobacco Cessation Education Requested by Patient: No Hx Alcohol Use: Yes Alcohol type: beer and wine Hx Substance Use: No Preferred Language: Honduran Crm Consultant Required: No Beliefs That Will Affect Care: None Current Living Situation: Spouse Other Information That Helps Us Care for You: No Feels Safe at Home: Yes Safety Concerns: Feels Safe At This Time Assistive Devices: Denture - Upper Assistive Devices Comment: Partial denture-upper Review of Systems Review of Systems: All systems reviewed & are unremarkable except as noted in Subjective Physical Exam Constitutional: well nourished; no acute distress Respiratory: no respiratory distress, no labored breathing and no retractions Auscultation: lungs clear to auscultation bilaterally; no crackles, no rales, no rhonchi and no wheezes Cardiovascular: Rate/Rhythm: regular rate and regular rhythm Heart Sounds: normal S1 and normal S2; no murmur Vessels: radial pulses present; no JVD and no carotid bruit Extremities: no edema Gastrointestinal (Abdomen): Inspection/Auscultation: abdomen normal to in spection and normal bowel sounds; abdomen not distended Percussion/Palpation: abdomen soft; abdomen nontender, no guarding and abdomen not rigid Neurologic: CN's II-XI intact bilaterally and moves all extremities; no focal motor deficits Results & Data Vital Signs (Past 12 Hours) Vital Signs Temp Pulse Pulse Resp BP BP Pulse Ox 01/18/24 10:27 101 H 113/76 94 01/18/24 09:05 36.7 C 103 H 113/78 94 01/18/24 08:26 01/18/24 08:26 37.4 C 110 H 18 136/86 97 01/18/24 07:13 107 H 01/18/24 07:00 100 H 20 103/80 98 01/18/24 06:30 113 H 16 98 01/18/24 06:00 105 H 19 112/77 96 01/18/24 05:53 01/18/24 05:52 107 H 01/18/24 05:24 110 H 22 95 01/18/24 05:09 117 H 19 93/71 L 91 01/18/24 04:33 116 H 21 91 01/18/24 04:24 117 H 25 H 92 01/18/24 04:12 118 H 23 93 01/18/24 03:59 37.6 C H 01/18/24 03:57 119 H 22 99/69 L 97 01/18/24 03:54 117 H 20 97 01/18/24 03:42 117 H 22 96 01/18/24 03:21 127 H 26 H 92 01/18/24 03:00 123 H 25 H 92 01/18/24 02:30 129 H 22 91 01/18/24 02:04 137 H 01/18/24 02:04 38.6 C H 01/18/24 02:00 135 H 28 H 105/70 91 01/18/24 01:38 36.5 C 151 H 18 111/58 L 93 Pulse Ox O2 Del Method O2 Del Method O2 Flow Rate O2 Flow Rate 01/18/24 10:27 Room Air 01/18/24 09:05 Room Air 01/18/24 08:26 Room Air 01/18/24 08:26 Room Air 01/18/24 07:13 01/18/24 07:00 Nasal Cannula 2 01/18/24 06:30 Nasal Cannula 2 01/18/24 06:00 Nasal Cannula 2 01/18/24 05:53 95 Nasal Cannula 2 01/18/24 05:52 01/18/24 05:24 01/18/24 05:09 Room Air 01/18/24 04:33 01/18/24 04:24 01/18/24 04:12 Room Air 01/18/24 03:59 01/18/24 03:57 Nasal Cannula 2 01/18/24 03:54 Nasal Cannula 2 01/18/24 03:42 Nasal Cannula 2 01/18/24 03:21 Room Air 01/18/24 03:00 Room Air 01/18/24 02:30 01/18/24 02:04 01/18/24 02:04 01/18/24 02:00 Room Air 01/18/24 01:38 Room Air Laboratory Results Cardiac Enzymes 01/18/24 01/18/24 01/18/24 Range/Units 02:04 04:04 07:07 AST 34 (13-39) U/L Troponin I High Sens 4063.1 H* 7103.5 H* D 97676.6 H* D (0-20) pg/ml Coagulation 01/18/24 Range/Units 02:04 PT 10.8 (9.0-12.0) Seconds APTT 26 (21-31) Seconds Lipids 01/18/24 Range/Units 07:07 Triglycerides 212 H (0-150) mg/dl Cholesterol 111 (0-200) mg/dl HDL Cholesterol 12 mg/dl Cholesterol/HDL Ratio 9.3 H (0-5) CBC 01/18/24 01/18/24 Range/Units 02:04 07:07 WBC 5.12 4.93 (4.8-10.8) K/ul RBC 4.57 L 3.94 L (4.70-6.10) M/uL Hgb 13.4 L 11.9 L (14.0-18.0) g/dl Hct 38.7 L 33.9 L (42.0-52.0) % Plt Count 131 115 L (130-400) K/uL Neut # (Auto) 4.38 3.78 (1.40-6.50) K/uL Lymph # (Auto) 0.22 L 0.45 L (1.20-3.40) K/uL [place] # (Auto) 0.46 0.65 H (0.11-0.59) K/uL Eos # (Auto) 0.00 0.00 (0.00-0.50) K/uL Baso # (Auto) 0.02 0.01 (0.00-0.20) K/uL Comprehensive Metabolic Panel 01/18/24 01/18/24 Range/Units 02:04 07:07 Sodium 130 L 136 (136-145) mmol/L Potassium 4.4 4.0 (3.5-5.1) mmol/L Chloride 97 L 109 H (98-107) mmol/L Carbon Dioxide 21 19 L (21-32) mmol/L BUN 24 H 20 (6-23) mg/dl Creatinine 1.11 0.92 (0.6-1.4) mg/dl Glucose 515 H* 393 H* (70-99(Fasting)) mg/dl Calcium 8.7 6.9 L (8.6-10.3) mg/dl Direct Bilirubin 0.2 (0-0.2) mg/dl AST 34 (13-39) U/L ALT 19 (7-52) U/L Alkaline Phosphatase 102 (34-104) U/L Total Protein 6.1 (6.0-8.3) gm/dl Albumin 3.5 (3.4-5.0) gm/dl Intake and Output 01/17/24 01/18/24 01/18/24 22:59 06:59 14:59 Intake Total 2216.15 / 2216.15 373.75 / 373.75 Output Total 400 / 400 Balance 2216.15 / 2216.15 -26.25 / -26.25 Intake: IV 2216.15 / 2216.15 373.75 / 373.75 Acetaminophen 1,000 mg In 100 100 / 100 ml @ 400 mls/hr IV NOW STA Rx#: [id number] Doxycycline Hyclate 100 mg In 100 / 100 Dextrose 5% Mini-B 100 ml @ 50 mls/hr IV Q12H [facility] Rx#:[id number] Heparin Sodium/Dextrose 25,000 173.75 / 173.75 units In 500 ml @ 1,250 UNITS/ HR 25 mls/hr IV .Q20H MIN Rx#: [id number] Magnesium Sulfate / D5w 1 gm In 100 / 100 100 / 100 100 ml @ 50 mls/hr IV Q2H [facility] Rx#:[id number] Sodium Chloride 0.9% 500 ml @ / 2015. 999 mls/hr IV .Q31M [facility] Rx#: [id number] Output: Urine 400 / 400 Other: Weight 74.3 kg 74.3 kg Weight Measurement Method Built in [facility] Patient Weight 01/19/24 06:59 Weight 74.3 kg (2) Cardiomyopathy Cardiomyopathy type: unspecified Qualified Code(s): I42.9 - Cardiomyopathy, unspecified (4) Urinary tract infection Hematuria presence: with hematuria Urinary tract infection type: site unspecified Qualified Code(s): N39.0 - Urinary tract infection, site not specified; R31.9 - Hematuria, unspecified
--- NOTE | 2024-01-18 11:56 | Urology Consultation ---
<Statement entered by Rajat Schmitz MD - 01/18/24 13:43> I have discussed Mr. Hyatt's case with MILLI Perdue and agree with the above documentation. He appears to be emptying his bladder reasonably well, but would monitor PVR to ensure he continues to empty. I do not appreciate any other obstruction that would require surgical intervention. Agree with anti biotics, narrowing as culture data becomes available. -Rajat Schmitz MD. Date of Consultation January 18, 2024 Assessment & Plan (1) Bacteremia: (2) Urinary tract infection: (3) Kidney stone: Plan 63 yo/M admitted with bacteremia/UTI. -Afebrile, normotensive and mildly tachycardic at present. -Labs today show no leukocytosis and normal renal function. -Urine and blood cultures growing gram-negative bacilli. -He is voiding spontaneously. -CTAP reviewed- Nonobstructive bilateral nephrolithiasis, no ureteral stones or hydronephrosis, prostatomegaly with evidence of chronic outlet obstruction. -No acute intervention warranted. -Would recommend checking bladder scans/PVRs to ensure he is emptying the bladder well. If found to be in urinary retention, would recommend Hernandez catheter placement for bladder decompression while treating infection. -Continue antibiotics and tailor per culture sensitivities. ID consulted. -Continue supportive care. -Urology will follow along. History of Present Illness Attending Physician: Pio Guzman MD History of Present Illness 63-year-old male with past med history significant for diabetes, history of recurrent kidney stones, hypertension and CAD s/p stent who presented to the ED this past weekend for shaking chills and hematuria. He was found to have a UTI, hyperglycemia and was also tachycardic. CT abdomen pelvis obtained and notable for nonobstructing bilateral stones, no ureteral stones or hydronephrosis and prostatomegaly with evidence of chronic outlet obstruction. Received fluids and Rocephin and was discharged on oral Bactrim. His blood cultures came back positive for gram-negative bacilli and patient was called back to ER for admission. In the ED, he was febrile and tachycardic. Labs showing elevated troponin, no leukocytosis and normal renal function. Urine and blood cultures preliminary gram-negative bacilli. He is admitted to medicine service. Urology consulted for ?prostatitis. ID and Cardiology consulted. CT abdomen pelvis 01/17/24- 1. Nonobstructing bilateral nephrolithiasis. 2. No ureteral calculi or hydronephrosis. 3. Prostamegaly with findings suggestive of chronic outlet obstruction. 4. No bowel obstruction or pneumoperitoneum. 5. Mild splenomegaly. Patient seen at bedside today. Awake, resting in bed on arrival. No acute distress. He does report some mild right sided discomfort. Denies fever, chills, nausea, vomiting. Voiding without issue. Feels he is emptying. Denies hematuria or dysuria. Denies suprapubic pain or pressure. He reports his symptoms started last Tuesday night. He had some shaking chills and hematuria. He denies any associated pain. He thought he may be passing a kidney stones but denied any noticeable stone passage. He does report a history of kidney stones with spontaneous passage and prior lithotripsy (2009). Previously seen in our office by Dr. Waldron. He denies any urinary symptoms or bother at baseline. Allergies Allergy/AdvReac Type Severity Reaction Status Date / Time No Known Allergies Allergy Verified 01/18/24 03:35 Home Medications Medication Instructions Recorded Confirmed Type sulfamethoxazole 800 1 tab PO Q12H 14 days #28 tabs 01/17/24 Rx mg-trimethoprim 160 mg tablet (Bactrim DS) Patient History Medical History Kidney stone Social History Smoking Status: Never smoker Tobacco Type: Cigars Cigarettes Per Day: smokes cigars bi-weekly, light use; Second Hand Exposure: No; Do You Dip or Chew Tobacco: No; Tobacco Cessation Education Requested by Patient: No Hx Alcohol Use: Yes Alcohol type: beer and wine Hx Substance Use: No Preferred Language: Marshallese [employer] Required: No Beliefs That Will Affect Care: None Current Living Situation: Spouse Other Information That Helps Us Care for You: No Feels Safe at Home: Yes Safety Concerns: Feels Safe At This Time Assistive Devices: Denture - Upper Assistive Devices Comment: Partial denture-upper Review of Systems Review of Systems: All systems reviewed & are unremarkable except as noted in HPI & below Physical Exam Constitutional: no acute distress Respiratory: no respiratory distress and no labored breathing Musculoskeletal: Head/Neck/Chest: normocephalic Neurologic: moves all extremities and awake Psychiatric: A+Ox3, euthymic affect Results & Data Vital Signs (Past 12 Hours) Vital Signs Temp Pulse Pulse Resp BP BP Pulse Ox 01/18/24 10:27 101 H 113/76 94 01/18/24 09:05 36.7 C 103 H 113/78 94 01/18/24 08:26 01/18/24 08:26 37.4 C 110 H 18 136/86 97 01/18/24 07:13 107 H 01/18/24 07:00 100 H 20 103/80 98 01/18/24 06:30 113 H 16 98 01/18/24 06:00 105 H 19 112/77 96 01/18/24 05:53 01/18/24 05:52 107 H 01/18/24 05:24 110 H 22 95 01/18/24 05:09 117 H 19 93/71 L 91 01/18/24 04:33 116 H 21 91 01/18/24 04:24 117 H 25 H 92 01/18/24 04:12 118 H 23 93 01/18/24 03:59 37.6 C H 01/18/24 03:57 119 H 22 99/69 L 97 01/18/24 03:54 117 H 20 97 01/18/24 03:42 117 H 22 96 01/18/24 03:21 127 H 26 H 92 01/18/24 03:00 123 H 25 H 92 01/18/24 02:30 129 H 22 91 01/18/24 02:04 137 H 01/18/24 02:04 38.6 C H 01/18/24 02:00 135 H 28 H 105/70 91 01/18/24 01:38 36.5 C 151 H 18 111/58 L 93 Pulse Ox O2 Del Method O2 Del Method O2 Flow Rate O2 Flow Rate 01/18/24 10:27 Room Air 01/18/24 09:05 Room Air 01/18/24 08:26 Room Air 01/18/24 08:26 Room Air 01/18/24 07:13 01/18/24 07:00 Nasal Cannula 2 01/18/24 06:30 Nasal Cannula 2 01/18/24 06:00 Nasal Cannula 2 01/18/24 05:53 95 Nasal Cannula 2 01/18/24 05:52 09/04/24 05:24 01/18/24 05:09 Room Air 01/18/24 04:33 01/18/24 04:24 01/18/24 04:12 Room Air 01/18/24 03:59 01/18/24 03:57 Nasal Cannula 2 01/18/24 03:54 Nasal Cannula 2 01/18/24 03:42 Nasal Cannula 2 01/18/24 03:21 Room Air 01/18/24 03:00 Room Air 01/18/24 02:30 01/18/24 02:04 01/18/24 02:04 01/18/24 02:00 Room Air 01/18/24 01:38 Room Air PG Care Time/CCT Total # of Minutes Spent Total Time Spent with Patient: Total time spent is greater than 50% in coordination of care (as documented) at patient's floor/unit and/or counseling patient: Coding Level of Care Code 28263 IN/OBS CONSULT LVL 4,60M Diagnoses Bacteremia R78.81 Urinary tract infection N39.0; R31.9 Hematuria presence: with hematuria Urinary tract infection type: site unspecified Kidney stone N20.0 (2) Urinary tract infection Hematuria presence: with hematuria Urinary tract infection type: site unspecified Qualified Code(s): N39.0 - Urinary tract infection, site not specified; R31.9 - Hematuria, unspecified
[2024-01-18] MEDS: oxyCODONE HCL IR 5 MG TAB (IMMEDIATE RELEASE) PO PRN (12:46)
--- NOTE | 2024-01-18 13:35 | Pharmacy Report ---
Pharmacy Glycemic Short Note 2 - Date of Service January 18, 2024 - Glycemic Short BSG Results (Last 24 hours): 01/18/24 01/18/24 01/18/24 02:04 05:43 07:07 Glucose 515 H* 393 H* POC Glucose 413 H* 01/18/24 01/18/24 01/18/24 08:51 08:59 10:06 Glucose POC Glucose 404 H* 384 H* 326 H* 01/18/24 01/18/24 12:17 13:19 Glucose POC Glucose 173 H 128 H OUTPATIENT ANTIDIABETIC REGIMEN: * N/A * Previously prescribed metformin and Januvia, but stopped taking HbA1c: 11.3% (01/18/24) ASSESSMENT: * CHELA is a 63 year old male w/ gram-negative bacteremia secondary to UTI vs. multifocal pneumonia * Receiving meropenem and doxycycline * Blood sugars > 400 mg/dL on presentation, pharmacy consulted for glycemic management * Received 12 units of Lantus, 10 units of IV regular insulin, and 18 units of SC bolus this morning * Blood sugars are now much improved, 128 mg/dL at lunchtime * On heparin gtt (mixed in dextrose) * Will be conservative w/ ongoing insulin orders today PLAN FOR INPATIENT GLYCEMIC CONTROL: * Basal insulin * Lantus 12 units SC this AM * Lantus 0-6-12 units SC HS * Bolus insulin * NovoLog per scale ACHS or Q6hrs while NPO * Goal Range: Low 110 mg/dL - High 140 mg/dL * Correction Factor: 30 mg/dL/unit * Nutritional / Prandial insulin per carb ratio of 1 unit per 10 grams CHO consumed
--- NOTE | 2024-01-18 13:41 | Electrocardiogram Report ---
Test Reason : Blood Pressure : */* mmHG Vent. Rate : 136 BPM Atrial Rate : 136 BPM P-R Int : 136 ms QRS Dur : 58 ms QT Int : 270 ms P-R-T Axes : 73 20 35 degrees QTcB Int : 406 ms Sinus tachycardia Low voltage QRS Cannot rule out Anteroseptal infarct , age undetermined Abnormal ECG Confirmed by Fantasma Mccormick ([id number]) on 01/18/2024 1:41:05 PM Referred By: Cornelio Sauceda Confirmed By: Fantasma Mccormick
--- NOTE | 2024-01-18 13:43 | Electrocardiogram Report ---
Test Reason : Blood Pressure : */* mmHG Vent. Rate : 106 BPM Atrial Rate : 106 BPM P-R Int : 124 ms QRS Dur : 78 ms QT Int : 300 ms P-R-T Axes : 79 17 11 degrees QTcB Int : 398 ms Sinus tachycardia Low voltage QRS Abnormal ECG When compared with ECG of 18-Jan-2024 02:08, (unconfirmed) Minimal criteria for Anteroseptal infarct are no longer Present Non-specific change in ST segment in Anterior leads Nonspecific T wave abnormality now evident in Inferior leads Confirmed by Fantasma Mccormick ([id number]) on 01/18/2024 1:43:10 PM Referred By: Cornelio Sauceda Confirmed By: Fantasma Mccormick
[2024-01-18 13:47] LABS: Troponin I High Sensitivity 18682.1 pg/ml (0-20)
--- NOTE | 2024-01-18 14:46 | CT Scan Report ---
CT chest diagnostic wo con CLINICAL HISTORY: r/o pneumonia, pleural effusion TECHNIQUE: Multidetector row helical CT of the chest was performed. Coronal and sagittal reformations were obtained. Automated dose lowering techniques and/or adjustment according to patient size were u tilized for this exam. CT DOSE: 476.48 mGy.cm Comparison: Comparison is made to CT chest 01/18/2024 FINDINGS: Lungs and pleura: Atelectasis versus scarring is seen in the dependent portions of the lungs. Trace b ilateral pleural effusions are seen. There are patchy groundglass opacities predominantly in the left lung, similar in extent to prior exam. Heart and pericardium: Heart size is normal. No pericardial effusion. Vessels: Severe atherosclerotic changes in the aorta and coronary arteries. Mediastinum and jackelyn: Subcentimeter lymph nodes are seen. Chest wall and lower neck: Unremarkable. Abdomen: Unremarkable. Bones: Degenerative changes in the thoracic spine. IMPRESSION: Pneumonia is seen predominantly in the left lung. Trace bilateral pleural effusions are seen. Reactiv e lymph nodes are seen. ACT 112: Negative or not required by law. Electronically signed by: Raimundo Tabares M.D. 01/18/2024 2:45 PM
--- NOTE | 2024-01-18 15:16 | Hospitalist Progress Note ---
Date of Service January 18, 2024 Assessment & Plan (1) Bacteremia: Plan: per admitting service notes with addendum: 63-year-old male with past med history significant for diabetes, history of multiple kidney stones, hypertension and CAD s/p stent in 2008 as per patient but currently not taking any medication except aspirin for last few months came to the ER in the morning because of hematuria last Tuesday and Tuesday and a lot of shaking chills and was worried about kidney stone and found to have UTI and possible prostatitis and hyperglycemia and was also tachycardic. Received fluids and Rocephin and was discharged on p.o. Bactrim as patient seemed to have appointment with his family doctor the next day. But the blood cultures came back positive for gram-negative bacilli and patient was called to come back to ER. Patient spiking temperature in the ER. Heart rate in 130s. Denies any chest pain or shortness of breath. Denies palpitations. Denies any headache currently. No runny nose or sore throat. No earache. Vision is okay. Current ly no nausea. Patient states initially had back and flank pain but currently no pains. Has some burning micturition. Currently no hematuria. Normal bowel movements. No swelling in the legs. No rash. Patient states because he lost weight his blood pressure is okay currently. Used to take Januvia and metformin but stopped 2 months ago. Used to be on take statin and generic Coreg but stopped about a month ago. Says he has an appointment tomorrow with his family doctor and he wants to start back on all the required medications. Sepsis secondary to: Bacteremia, Gram-negative bacilli bacteremia Acute UTI, Gram-negative bacilli bacteremia Pneumonia, Left Has fever and tachycardia and leukocytosis Lactic acid 1.4 CTA chest: no PE, (+) left sided pneumonia Resp biofire negative Blood culture: Gram-negative bacilli bacteremia Urine CUlture: " continue Meropenem and Doxycycline ID consulted Gentle IV fluids given low EF Non-ST elevated KS History of CAD s/p stent in 2008 Troponin 4063--> 12,000 EKG no acute ischemia Echo: EF reduced as per Cardiology Patient asymptomatic as per patient Except aspirin not taking other medications Started on IV heparin Continue aspirin Start Coreg 3.125 mg twice daily with holding parameters and Lipitor 40 mg daily Cardiology consulted Hyperglycemia History of diabetes Stopped taking his metformin and Januvia about 2 months ago Will give a dose of IV insulin [address] on Lantus and sliding scale Monitor blood sugars closely Follow HbA1c levels: 11.3 Glycemic pharmacy consult Possible prostatitis Kidney stones CT scan done in the morning showed nonobstructing bilateral nephrolithiasis No ureteral calculi or hydronephrosis Prostatomegaly with findings of chronic outlet obstruction Urology consulted Mild splenomegaly on CAT scan Needs follow-up DVT prophylaxis IV heparin Disposition Telemetry Full code. plan of care discussed with patient in detail and at length all questions answered he is understanding, agreeable, comfortable with the plan of care Admission and Anticipated Discharge Date Admission Date: January 18, 2024 Subjective ff up for sepsis, etc seen resting in bed, comfortable smiling states he feels fine overall has some R sided flank pain no hematuria since the weekend has mild cough denies shortness of breath denies chest pain,palpitations, nausea, dizziness no other symptoms Review of Systems Review of Systems: all noted and negative except for above Physical Exam Physical Exam: General- oriented x 3, not in distress, speaks in sentences with no effort or accessory muscle use Eyes- anicteric Neck- no JVD Lungs- mild rhonchi, left lung otero clear on the right no wheezing Heart- normal rate, regular rhythm; no murmurs Abdomen- normal bowel sounds, nondistended, soft, nontender Extremities- no pretibial edema, no calf tenderness Neuro- alert, oriented x 3; no gross focal neurologic deficits Skin- warm & dry Results & Data Results & Data Vital Signs (Past 12 Hours) Vital Signs Temp Pulse Pulse Resp BP BP Pulse Ox 01/18/24 15:05 37.3 C 89 18 105/69 97 01/18/24 12:25 37.3 C 96 H 17 105/70 97 01/18/24 10:27 101 H 113/76 94 01/18/24 09:05 36.7 C 103 H 113/78 94 01/18/24 08:28 109 H 01/18/24 08:26 01/18/24 08:26 37.4 C 110 H 18 136/86 97 01/18/24 07:13 107 H 01/18/24 07:00 100 H 20 103/80 98 01/18/24 06:30 113 H 16 98 01/18/24 06:00 105 H 19 112/77 96 01/18/24 05:53 01/18/24 05:52 107 H 01/18/24 05:24 110 H 22 95 01/18/24 05:09 117 H 19 93/71 L 91 01/18/24 04:33 116 H 21 91 01/18/24 04:24 117 H 25 H 92 01/18/24 04:12 118 H 23 93 01/18/24 03:59 37.6 C H 01/18/24 03:57 119 H 22 99/69 L 97 01/18/24 03:54 117 H 20 97 01/18/24 03:42 117 H 22 96 01/18/24 03:21 127 H 26 H 92 Pulse Ox O2 Del Method O2 Del Method O2 Flow Rate O2 Flow Rate 01/18/24 15:05 Room Air 01/18/24 12:25 Room Air 01/18/24 10:27 Room Air 01/18/24 09:05 Room Air 01/18/24 08:28 01/18/24 08:26 Room Air 01/18/24 08:26 Room Air 01/18/24 07:13 01/18/24 07:00 Nasal Cannula 2 01/18/24 06:30 Nasal Cannula 2 01/18/24 06:00 Nasal Cannula 2 01/18/24 05:53 95 Nasal Cannula 2 01/18/24 05:52 01/18/24 05:24 01/18/24 05:09 Room Air 01/18/24 04:33 01/18/24 04:24 01/18/24 04:12 Room Air 01/18/24 03:59 01/18/24 03:57 Nasal Cannula 2 01/18/24 03:54 Nasal Cannula 2 01/18/24 03:42 Nasal Cannula 2 01/18/24 03:21 Room Air all noted and reviewed including below
[2024-01-18 15:59] LABS: ANTI-Xa, UFH(UnfractionatedHep 0.21 IU/ml (0.3-0.7)
[2024-01-18] MEDS: METOPROLOL TARTRATE 1 MG/ML VIAL IV STA (16:03)
[2024-01-18 16:04] LABS: BUN Creatinine Ratio 20.7 (10-20); Calcium 8.2 mg/dl (8.6-10.3); Creatinine Clr Calc Pharmacy 81.6 ml/min; Est GFR (African American) 103.7 ml/min; Est GFR (Non-African American) 89.5 ml/min; Potassium 3.7 mmol/L (3.5-5.1)
--- NOTE | 2024-01-18 16:17 | Communication Note ---
Date of Service: January 18, 2024 Called by nurse due to runs of ventricular tachycardia on telemetry. Patient has returned to sinus rhythm. ECG without ST elevation, however, high-sen sitivity troponin trending upward to 18,000. Patient continues to not deny chest pain or palpitations. No lightheadedness or dizziness. Further ischemic evaluation recommended. Risk versus benefit of urgent cardiac catheterization discussed. Patient agreeable to proceed. Urgent coronary angiography will be performed by interventional cardiology. Stat lab studies and electrolytes ordered. 5 mg IV Lopressor be administered now. IV amiodarone ordered.
[2024-01-18] MEDS: NITROGLYCERIN/D5W 100MCG/ML 20ML SYR ONE (16:36)
[2024-01-18] MEDS: niCARdipine HCL INJ 2.5 MG/ML 10 ML AMP ONE (16:36)
[2024-01-18] MEDS: LIDOCAINE 1% LOCAL 20 ML VIAL ONE (16:37)
--- NOTE | 2024-01-18 17:07 | Infectious Disease Consult ---
Date of Service January 18, 2024 Telehealth Information I performed this visit using a real-time telehealth connection between my location and the patients location ([facility]). After connecting through interactive tele-video, patient was identified by name and date of and/or wristband check.Patient (or authorized healthcare retention representative) was informed that this was a telemedicine visit and it was being conducted confidentially over secure lines. My office door was closed and no one else was present in the room with me.Patient (or authorized healthcare retention representative) provided consent to proceed with the visit, expressed an understanding of privacy and security of the telemedicine visit, and gave permission to have a hospital retention representative in the room in order to assist with the visit and to conduct portions of the visit, as needed. I informed the patient (or authorized healthcare retention representative) that I reviewed their record and presented the opportunity for them to ask any questions regarding the visit today. The patient agreed to participate. Assessment & Plan (1) E coli bacteremia: (2) Complicated UTI (urinary tract infection): (3) Bladder outlet obstruction: (4) Acute non-ST elevation myocardial infarction (NSTEMI): Plan We agree with IV Meropenem for now pending susceptibilities. I am not that concerned about pneumonia especially without any respiratory symptoms. Therefore, I would recommend stopping doxycycline for now. Thank you for consulting ID. We will continue to follow. History of Present Illness History of Present Illness Mr. Hyatt is a 63-year-old man with medical history of type 2 diabetes, HTN, CAD status post stenting and nephrolithiasis who was admitted to [facility] on 01/18/2024 because of hematuria and recently shaking chills. On presentation, he was afebrile; however, few hours later he spiked a fever of 38.6. In the ED, he was tachycardic at 146 and hypertensive at 153/81 but breathing comfortably at room air. Initial blood workup showed very high blood sugar of around 337 and markedly elevated troponin of around 4000 which kept trending up reaching around 12,400 this morning. He also had significantly high procalcitonin at 9.85. His urine showed more than 50 pyuria and 4+ bacteriuria. Shortly after admission, his blood culture came back positive for E coli with positive CTX M gene. CT of the abdomen and pelvis showed nonobstructive bilateral nephrolithiasis without any hydronephrosis. It further demonstrated prostatomegaly with findings suggestive of chronic outlet obstruction. CTA chest showed no PE but patchy ground-glass airspace consolidation through the left lung consistent with multilobar pneumonia. Id team was consulted for further recommendations and to help guide antibiotic treatment. Allergies Allergy/AdvReac Type Severity Reaction Status Date / Time No Known Allergies Allergy Verified 01/18/24 03:35 Home Medications Medication Instructions Recorded Confirmed Type sulfamethoxazole 800 1 tab PO Q12H 14 days #28 tabs 01/17/24 Rx mg-trimethoprim 160 mg tablet (Bactrim DS) Patient History Medical History Kidney stone Social History Smoking Status: Never smoker Tobacco Type: Cigars Cigarettes Per Day: smokes cigars bi-weekly, light use; Second Hand Exposure: No; Do You Dip or Chew Tobacco: No; Tobacco Cessation Education Requested by Patient: No Hx Alcohol Use: Yes Alcohol type: beer and wine Hx Substance Use: No Preferred Language: [place] Required: No Beliefs That Will Affect Care: None Current Living Situation: Spouse Other Information That Helps Us Care for You: No Feels Safe at Home: Yes Safety Concerns: Feels Safe At This Time Assistive Devices: Denture - Upper Assistive Devices Comment: Partial denture-upper Review of Systems Neg except for what was mentioned in H&P. Physical Exam Couldn't be obtained as the visit was conducted via telemed. Results & Data Vital Signs (Past 12 Hours) Vital Signs Temp Pulse Pulse Resp BP BP Pulse Ox 01/18/24 16:14 94 H 01/18/24 16:03 99 H 127/81 01/18/24 15:05 37.3 C 89 18 105/69 97 01/18/24 12:25 37.3 C 96 H 17 105/70 97 01/18/24 10:27 101 H 113/76 94 01/18/24 09:05 36.7 C 103 H 113/78 94 01/18/24 08:28 109 H 01/18/24 08:26 01/18/24 08:26 37.4 C 110 H 18 136/86 97 01/18/24 07:13 107 H 01/18/24 07:00 100 H 20 103/80 98 01/18/24 06:30 113 H 16 98 01/18/24 06:00 105 H 19 112/77 96 01/18/24 05:53 01/18/24 05:52 107 H 01/18/24 05:24 110 H 22 95 01/18/24 05:09 117 H 19 93/71 L 91 Pulse Ox O2 Del Method O2 Del Method O2 Flow Rate O2 Flow Rate 01/18/24 16:14 01/18/24 16:03 01/18/24 15:05 Room Air 01/18/24 12:25 Room Air 01/18/24 10:27 Room Air 01/18/24 09:05 Room Air 01/18/24 08:28 01/18/24 08:26 Room Air 01/18/24 08:26 Room Air 01/18/24 07:13 01/18/24 07:00 Nasal Cannula 2 01/18/24 06:30 Nasal Cannula 2 01/18/24 06:00 Nasal Cannula 2 01/18/24 05:53 95 Nasal Cannula 2 01/18/24 05:52 01/18/24 05:24 01/18/24 05:09 Room Air Laboratory Results Microbiology: 01/16: 1 of 2 bottles of blood culture growing Gram-negative bacilli (identified as E coli with positive CTX M gene on PCR) 01/16: Urine culture growing Gram-negative bacilli Diagnostic Findings Imaging: CT abdomen pelvis on 01/16: 1. Nonobstructing bilateral nephrolithiasis. 2. No ureteral calculi or hydronephrosis. 3. Prostamegaly with findings suggestive of chronic outlet obstruction. 4. No bowel obstruction or pneumoperitoneum. 5. Mild splenomegaly. CTA chest on 01/17: 1. No pulmonary embolism. 2. Patchy ground-glass airspace consolidation throughout the LEFT lung, consistent with multilobar pneumonia.
[2024-01-18] MEDS: MIDAZOLAM HCL 1 MG/ML 2ML VIAL ONE (17:23)
[2024-01-18] MEDS: fentaNYL citrate PF 100 MCG/2 ML VIAL ONE (17:23)
[2024-01-18] MEDS: TICAGRELOR 90 MG TAB ONE (17:25)
[2024-01-18] MEDS: HEPARIN (PORCINE) 1000 UNIT/ML 10 ML (CATH LAB USE ONLY) ONE ×2 (17:25→19:12)
--- NOTE | 2024-01-18 17:34 | Pre Anesthesia Assessment ---
Date of Service January 18, 2024 Pre Sedation Assessment Vital Signs Temp Pulse Pulse Resp BP BP Pulse Ox 01/18/24 16:14 94 H 01/18/24 16:03 99 H 127/81 01/18/24 15:05 37.3 C 89 18 105/69 97 01/18/24 12:25 37.3 C 96 H 17 105/70 97 01/18/24 10:27 101 H 113/76 94 01/18/24 09:05 36.7 C 103 H 113/78 94 01/18/24 08:28 109 H 01/18/24 08:26 01/18/24 08:26 37.4 C 110 H 18 136/86 97 01/18/24 07:13 107 H 01/18/24 07:00 100 H 20 103/80 98 01/18/24 06:30 113 H 16 98 01/18/24 06:00 105 H 19 112/77 96 01/18/24 05:53 01/18/24 05:52 107 H 01/18/24 05:24 110 H 22 95 01/18/24 05:09 117 H 19 93/71 L 91 01/18/24 04:33 116 H 21 91 01/18/24 04:24 117 H 25 H 92 01/18/24 04:12 118 H 23 93 01/18/24 03:59 37.6 C H 01/18/24 03:57 119 H 22 99/69 L 97 01/18/24 03:54 117 H 20 97 01/18/24 03:42 117 H 22 96 01/18/24 03:21 127 H 26 H 92 01/18/24 03:00 123 H 25 H 92 01/18/24 02:30 129 H 22 91 01/18/24 02:04 137 H 01/18/24 02:04 38.6 C H 01/18/24 02:00 135 H 28 H 105/70 91 01/18/24 01:38 36.5 C 151 H 18 111/58 L 93 Pulse Ox O2 Del Method O2 Del Method O2 Flow Rate O2 Flow Rate 01/18/24 16:14 01/18/24 16:03 01/18/24 15:05 Room Air 01/18/24 12:25 Room Air 01/18/24 10:27 Room Air 01/18/24 09:05 Room Air 01/18/24 08:28 01/18/24 08:26 Room Air 01/18/24 08:26 Room Air 01/18/24 07:13 01/18/24 07:00 Nasal Cannula 2 01/18/24 06:30 Nasal Cannula 2 01/18/24 06:00 Nasal Cannula 2 01/18/24 05:53 95 Nasal Cannula 2 01/18/24 05:52 01/18/24 05:24 01/18/24 05:09 Room Air 01/18/24 04:33 01/18/24 04:24 01/18/24 04:12 Room Air 01/18/24 03:59 01/18/24 03:57 Nasal Cannula 2 01/18/24 03:54 Nasal Cannula 2 01/18/24 03:42 Nasal Cannula 2 01/18/24 03:21 Room Air 01/18/24 03:00 Room Air 01/18/24 02:30 01/18/24 02:04 01/18/24 02:04 01/18/24 02:00 Room Air 01/18/24 01:38 Room Air Cardiovascular RRR, no murmur, no edema Respiratory normal respiratory effort, lungs clear to auscultation Pre-Sedation Airway Assessment Smoking Status: Never smoker mallampati 2 ASA 4 Notes The planned sedation has been discussed with the patient. Informed Consent was obtained. I have identified the patient, determined the appropriateness of sedation and have assessed the patient immediately prior to the procedure. All medicine(s) and interventions are by my order.
--- NOTE | 2024-01-18 17:37 | Post Anesthesia Assessment ---
Date of Service January 18, 2024 Post Sedation Assessment Vital Signs Temp Pulse Pulse Resp BP BP Pulse Ox 01/18/24 16:14 94 H 01/18/24 16:03 99 H 127/81 01/18/24 15:05 37.3 C 89 18 105/69 97 01/18/24 12:25 37.3 C 96 H 17 105/70 97 01/18/24 10:27 101 H 113/76 94 01/18/24 09:05 36.7 C 103 H 113/78 94 01/18/24 08:28 109 H 01/18/24 08:26 01/18/24 08:26 37.4 C 110 H 18 136/86 97 01/18/24 07:13 107 H 01/18/24 07:00 100 H 20 103/80 98 01/18/24 06:30 113 H 16 98 01/18/24 06:00 105 H 19 112/77 96 01/18/24 05:53 01/18/24 05:52 107 H 01/18/24 05:24 110 H 22 95 01/18/24 05:09 117 H 19 93/71 L 91 01/18/24 04:33 116 H 21 91 01/18/24 04:24 117 H 25 H 92 01/18/24 04:12 118 H 23 93 01/18/24 03:59 37.6 C H 01/18/24 03:57 119 H 22 99/69 L 97 01/18/24 03:54 117 H 20 97 01/18/24 03:42 117 H 22 96 01/18/24 03:21 127 H 26 H 92 01/18/24 03:00 123 H 25 H 92 01/18/24 02:30 129 H 22 91 01/18/24 02:04 137 H 01/18/24 02:04 38.6 C H 01/18/24 02:00 135 H 28 H 105/70 91 01/18/24 01:38 36.5 C 151 H 18 111/58 L 93 Pulse Ox O2 Del Method O2 Del Method O2 Flow Rate O2 Flow Rate 01/18/24 16:14 01/18/24 16:03 01/18/24 15:05 Room Air 01/18/24 12:25 Room Air 01/18/24 10:27 Room Air 01/18/24 09:05 Room Air 01/18/24 08:28 01/18/24 08:26 Room Air 01/18/24 08:26 Room Air 01/18/24 07:13 01/18/24 07:00 Nasal Cannula 2 01/18/24 06:30 Nasal Cannula 2 01/18/24 06:00 Nasal Cannula 2 01/18/24 05:53 95 Nasal Cannula 2 01/18/24 05:52 01/18/24 05:24 01/18/24 05:09 Room Air 01/18/24 04:33 01/18/24 04:24 01/18/24 04:12 Room Air 01/18/24 03:59 01/18/24 03:57 Nasal Cannula 2 01/18/24 03:54 Nasal Cannula 2 01/18/24 03:42 Nasal Cannula 2 01/18/24 03:21 Room Air 01/18/24 03:00 Room Air 01/18/24 02:30 01/18/24 02:04 01/18/24 02:04 01/18/24 02:00 Room Air 01/18/24 01:38 Room Air Recovery Score Activity: Moves 4 extremities Respiration: Deep Breath/Cough Circulation: +/-20% PreAnes Value Consciousness: Fully Awake Oxygen Saturation: > 92% On Room Air Discharge Sedation Level of Care: Fast Track Phase II Post Sedation Plan On clinical assessment, the patient appears to have tolerated the sedation without complications. Patient is recovering as anticipated. Patient will continue to be monitored by nursing and may be discharged when sedation discharge criteria are met per below protocol. Upon Completions of procedure up to 15 minutes continue every 5 minute vital signs and the P.A.R. score; then discharge to a Phase I or Fast Track to Phase II per the following guidelines: * Discharge Patient to appropriate Phase II area if PAR is 8 or greater or return to pre- procedure baseline. The post - procedure orders will be as directed. * If PAR score is less than 8 or not return to pre-procedure baseline then patient will follow Phase I monitoring till PAR is reached for Phase II. The Phase I may be done in procedure room or may call to secure a Phase I area. * If naloxone or flumazenil are used for reversal, hold in Phase I for continued monitoring from when last reversal dose was given for a minimum of 60 minutes or longer pending the nurse and/or physician discretion of patient condition before discharge to Phase II. Please call the Sedation Physician to re-evaluate and complete post-note for discharge to Phase II area. Do NOT discharge from procedure sedation or Phase 1 until post- sedation evaluation note is complete by procedure /sedation MD Sedation Discharge Instructions to be given to the patient at discharge to home. [facility] [place] Codes (Charges) Indication for Procedure Indication for procedure: NSTEMI Cardiomyopathy Sedation/Anesthesia Procedure 1: Sedation/Anesthesia: 37372 Mod Sedation by the same physician;Init15 Min Child Age 5 & Up (initial 15 min, start 1646) Total Sedation Time (minutes): 30 Procedure 2: Sedation/Anesthesia: 33914 Mod Sedation by the same physician; Ea [id number] Minutes (additional 15 min, end 17:16) Total Sedation Time (minutes): 30
--- NOTE | 2024-01-18 17:52 | Cardiac Catheterization ---
ACC Data: Allergist/Immunologist Cardiac Status Clinical evaluation leading to the procedure CAD Presenation: Non STEMI Anginal Classification: No Symptoms (Ventricular tachycardia) Heart Failure: NYHA Class: CCS IV Cardiogenic Shock within 24 Hours: No Cardiac Arrest within 24 Hours: No Imaging Studies Past 6 Months: No Stress Studies Past 6 Months: No Coronary Anatomy Left Main (% Stenosis): Normal LAD (% Stenosis): Mid (99% in-stent restenosis) D1 (% Stenosis): Normal D2 (% Stenosis): Ostial (50%) Circumflex (% Stenosis): Ostial (30 to 40%) and Mid (40%) OM1 (% Stenosis): Normal OM2 (% Stenosis): Normal L PL1 (% Stenosis): Normal RCA (% Stenosis): Normal R PDA (% Stenosis): Normal R PL1 (% Stenosis): Normal Diagnostic Physicians Name: Laurent Garces MD, PhD Closure Device Percutaneous Entry Location: Radial Closure Device: Radial Band Recommendations: Medical Therapy and/or Counseling and PCI without planned CABG PCI Indication: PCI for high risk Non-ARCENIO Lesion Segment Name: Mid LAD Culprit Artery: Yes Stenosis Prior to Rx (%): 99 Chronic Total Occlusion: Yes (Subtotal) Pre-Procedure LEFTY Flow: 1 Previously Treated Lesion: Yes Lesion Complexity: Non-High/Non-C Lesion Length (mm): 12 Thrombus Present: No Bifurcation Lesion: No Guidewire Across Lesion: Yes Cardiac Cath Procedure Full Procedure Date January 18, 2024 Pre-Procedure Diagnosis Pre-Procedure Diagnosis: Non STEMI, Cardiomyopathy and Arrhythmia (Ventricular tachycardia) AUC Score AUC Score: 09 Post-Procedure Diagnosis Post-Procedure Diagnosis: Severe CAD and Successful PCI Procedure(s) Performed Procedure(s) Performed: Coronary Angiography, Drug Eluting Stent and Ultrasound Guided Vascular Access Sales And Service Technician Laurent Garces MD, PhD Estimated Blood Loss Estimated Blood Loss: 5 cc Medication(s) Medication(s): Fentanyl, Heparin, Lidocaine 1%, Nicardipine, Nitroglycerin and Versed Summary of Findings Brief description: Patient was brought to the cardiac catheterization suite where he was shaved and prepped in a sterile fashion. Sedated using IV Versed and fentanyl. Soft tissues of the right wrist were anesthetized using 2 mL of 1% Xylocaine. The right radial artery was accessed under ultrasonic guidance and a 6 Chinese radial artery glide sheath was placed. Patient was provided anticoagulation with IV heparin and antispasmodics including nicardipine and nitroglycerin. All catheters were advanced and exchanged over a 0.035 J-tip wire. Left coronary angiography in orthogonal views a 5 Chinese [place] 4 diagnostic catheter. Right coronary angiography in orthogonal views with a 5 Chinese [place] 4 diagnostic catheter. Diagnostic catheters were removed. Decision was made to proceed with attempted PCI of the LAD. ACT was checked and additional heparin was provided throughout the case as needed to maintain therapeutic anticoagulation. A 6 Chinese EBU 3.0 guide catheter was used to engage the left main coronary. A BMW universal guidewire was advanced and positioned distally in the LAD. The in-stent restenosis was predilated with a 1.5 x 6 mm trek balloon with multiple inflations up to 14 [place] Additional predilatation was performed with a 2.0 x 12 mm trek balloon with multiple inflations up to 14 [place] Cutting balloon atherectomy was performed with a 2.5 x 10 mm [place] cutting balloon at 6 [place] x 2. Drug-eluting stent implantation with a 2.5 x 18 mm Tirso drug-eluting stent deployed at 18 atmospheres. Stent balloon was removed. Driving Teacher angiography was performed. Guidewire was removed. Final angiographic evaluation was performed. Guide catheter was removed over the J-wire. Radial artery sheath was removed. Hemostasis was obtained using the TR band. Patient was hemodynamically stable and asymptomatic. After receiving Brilinta 180 mg p.o. he was then returned to his room in stable condition. This ended the case. Coronary angiography findings: IDM-pjzje-qhfbubp vessel bifurcating into LAD and circumflex. Has mild less than 20% stenosis. BSU-uktoi-tamuohw and transapical. Proximally there is no significant disease. It gives a medium to large caliber branching first diagonal which has mild scattered disease. It gives a large septal branch. After this the mid segment has previously placed stent with 99% in-stent restenosis and LEFTY I flow distally. LAD then gives a medium caliber second diagonal which has ostial 50% stenosis and then branches with mild scattered plaque. The distal LAD has diffuse mild luminal irregularities. LCx-this is large caliber and nondominant. There is an ostial 30 to 40% stenosis and the circumflex in the AV groove gives a high arising medium caliber OM1. The mid AV groove vessel has focal 30 to 40% stenosis and provides a medium caliber OM 2. Distally circumflex becomes a branching posterolateral. The branches of the circumflex have no more than mild luminal irregularities. RCA-this is large caliber and dominant. It has no more than mild scattered luminal irregularities. Distally it bifurcates into a large PDA and a large multi branching posterolateral. These vessels have no disease. They provide right to left collaterals to the distal LAD. PCI of LAD-0% residual stenosis post PCI LEFTY-3 flow post PCI No evidence of dissection or perforation post PCI Ostium of the second diagonal with 50 to 70% stenosis. The distal LAD beyond the stent edge has diffuse mild less than 20 to 30% stenosis. Summary: 1. Severe in-stent restenosis of prior LAD stent. Mild nonocclusive coronary disease elsewhere as described. 2. Successful PCI of the LAD with implantation of a drug-eluting stent following Cutting Balloon atherectomy. 3. Dual antiplatelet therapy with aspirin 81 mg daily and Brilinta 90 mg p.o. twice daily 4. Guideline directed medical therapy for secondary prevention of coronary disease to include; low-dose aspirin, high intensity statin therapy, beta- odette, and CHLOE inhibitor/ARB since he is diabetic. 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 Hemodynamics Rest Ao:: 87/65 mmHg Final Ao: 111/78 mmHg LV: Not performed Recommendations Recommendations: Medical Therapy and/or Counseling and PCI without planned CABG Radiation Exposure (mGy) 1740 mGy Contrast (mls) 180 mL Anesthesia 2 mg Versed, 50 mcg fentanyl IV. Start time 1646, end time 1716 Procedural Complication(s) None Disposition Allergist/Immunologist Holding/Recovery I attest to the content of the Intraoperative Record and any orders documented therein. Any exceptions are noted below. [facility] Card Cath Procedure Codes Cardiac Catheterization Procedure 1: Cardiovascular Cath Procedures: 13653 Coronaries Therapeutic Services & Ancillary Procedure 2: Cardiovascular Tx and Anc Procedures: 02086 Ultrasonic Guidance Vascular Access Moderate Sedation Procedure 1: Sedation/Anesthesia: 97273 Mod Sedation by the same physician;Init15 Min Child Age 5 & Up (Initial 15-minute, start time 1646) Procedure 2: Sedation/Anesthesia: 81058 Mod Sedation by the same physician; Ea [id number] Minutes (Additional 15 minutes, end time 1716) Stenting Procedure 1: Cardiovascular Stent Procedures: 42162 Perc transluminal revascularization of acute sub/total occl, aMI (LAD) PG Care Time/CCT Total # of Minutes Spent Total Time Spent with Patient: Total time spent is greater than 50% in coordination of care (as documented) at patient's floor/unit and/or counseling patient:
[2024-01-18] MEDS ORDERED: Nursing to Pharmacy Communication SCH (18:30)
[2024-01-18] MEDS: POTASSIUM CHLORIDE CRTAB 20 MEQ TABCR PO STA (18:59)
[2024-01-18] MEDS: OPTIRAY 350 ONE (19:11)
[2024-01-18] MEDS: SODIUM CHLOR 7% 4 ML NEB NEB SCH (19:32)
[2024-01-18] MEDS ORDERED: STAT IV Infusion **Titration per Protocol STA (19:50)
[2024-01-18] MEDS ORDERED: 0.2 MICRON FILTER SET 1 EACH IV STA (19:50)
[2024-01-18] MEDS ORDERED: AMIODARONE IV BOLUS & DRIP IV STA (19:50)
[2024-01-18] MEDS: AMIODARONE / D5W 150 MG/100 ML BAG IV STA (20:08)
[2024-01-18] MEDS: LANTUS PER UNIT CHARGE SQ SCH (20:09)
[2024-01-18] MEDS: TICAGRELOR 90 MG TAB PO SCH (20:10)
[2024-01-18] MEDS: METOPROLOL TARTRATE 25 MG TAB PO SCH (20:10)
[2024-01-18] MEDS: AMIODARONE / D5W 360 MG/200 ML BAG IV ONE (20:30)
[2024-01-19] MEDS: AMIODARONE / D5W 360 MG/200 ML BAG IV SCH (02:24)
[2024-01-19] MEDS: MoRPHine SULFATE 4 MG/ML 1 ML CARP\\VIAL IV PRN (03:47)
[2024-01-19] MEDS: LANTUS PER UNIT CHARGE SC SCH ×2 (07:47→11:48)
[2024-01-19] MEDS: ASPIRIN 81 MG ECTAB PO SCH (07:53)
--- NOTE | 2024-01-19 08:31 | Urology Progress Note ---
Date of Service January 19, 2024 Assessment & Plan (1) Bacteremia: (2) Urinary tract infection: (3) Kidney stone: Plan 63 yo/M admitted with bacteremia/UTI. Pt developed ventricular tachycardia on telemetry yesterday evening and underwent urgent cardiac cath with stent place ment 01/17. -Afebrile with stable vitals at present. -Labs today show no leukocytosis and normal renal function. -Urine culture prelim gram-negative bacilli; Blood culture prelim E.coli ESBL -He is voiding spontaneously. Bladder scan yesterday was acceptable. -CTAP reviewed- Nonobstructive bilateral nephrolithiasis, no ureteral stones or hydronephrosis, prostatomegaly with evidence of chronic outlet obstruction. -No acute intervention warranted. -He appears to be emptying his bladder reasonably well, but would monitor PVRs to ensure he continues to empty. -Continue antibiotics and tailor per culture sensitivities. ID consulted. -Continue supportive care and management per primary team. -Will arrange outpatient follow-up with our service. -Urology will sign-off. Please call with any further questions or concerns. Admission and Anticipated Discharge Date Admission Date: January 18, 2024 Subjective Pt seen at bedside this AM Awake, resting in bed on arrival No acute distress Pt developed ventricular tachycardia on telemetry yesterday evening and underwe nt urgent cardiac cath with stent placement Reports he is feeling well overall Denies fever or chills Voiding without issue Review of Systems Constitutional: as per Subjective / HPI Genitourinary: + as per Subjective / HPI Physical Exam Constitutional: no acute distress Respiratory: no respiratory distress and no labored breathing Neurologic: awake Psychiatric: A+Ox3, euthymic affect Results & Data Vital Signs (Past 12 Hours) Vital Signs Temp Pulse Pulse Resp BP Pulse Ox Pulse Ox 01/19/24 08:00 01/19/24 07:55 88 134/87 01/19/24 07:25 37.2 C 96 H 18 131/89 97 01/19/24 07:06 84 01/19/24 05:53 95 01/19/24 02:41 37.7 C H 80 18 114/77 95 01/18/24 23:25 36.7 C 80 18 97 01/18/24 21:37 86 18 107/72 97 O2 Del Method O2 Del Method O2 Flow Rate 01/19/24 08:00 Nasal Cannula 2 01/19/24 07:55 09/05/24 07:25 Nasal Cannula 2.0 01/19/24 07:06 01/19/24 05:53 Room Air 01/19/24 02:41 Nasal Cannula 2 01/18/24 23:25 Nasal Cannula 2 01/18/24 21:37 Nasal Cannula 2.0 PG Care Time/CCT Total # of Minutes Spent Total Time Spent with Patient: Total time spent is greater than 50% in coordination of care (as documented) at patient's floor/unit and/or counseling patient: Coding Level of Care Code 57303 SUB INP/OBS CARE MIN Diagnoses Bacteremia R78.81 Urinary tract infection N39.0; R31.9 Hematuria presence: with hematuria Urinary tract infection type: site unspecified Kidney stone N20.0 (2) Urinary tract infection Hematuria presence: with hematuria Urinary tract infection type: site unspecified Qualified Code(s): N39.0 - Urinary tract infection, site not specified; R31.9 - Hematuria, unspecified
[2024-01-19 09:00] LABS: Basophils # (auto) 0.02 K/uL (0.00-0.20); Basophils % (auto) 0.3 %; Hematocrit (blood only) 35.9 % (42.0-52.0); Hemoglobin 12.1 g/dl (14.0-18.0); Immature Granulocytes # (auto) 0.07 K/uL (0.01-0.20); Immature Granulocytes % (auto) 0.9 %; Lymphocytes # (auto) 0.63 K/uL (1.20-3.40); Lymphocytes % (auto) 8.1 %; Mean Corpuscular Hemoglobin 29.3 pg (25.0-34.0); Mean Corpuscular Hgb Conc 33.7 g/dL (32.0-36.0); Mean Corpuscular Volume 86.9 fL (80.0-100.0); Mean Platelet Volume 9.6 fL (9.4-12.4); Monocytes % (auto) 6.4 %; Neutrophils # (auto) 6.59 K/uL (1.40-6.50); Neutrophils % (auto) 84.3 %; Platelet Count 149 K/uL (130-400); RDW Coefficient of Variation 12.5 % (11.5-14.5); RDW Standard Deviation 40.1 fL (36.4-46.3); Red Blood Count 4.13 M/uL (4.70-6.10); White Blood Count 7.81 K/ul (4.8-10.8)
[2024-01-19 09:18] LABS: Calcium 8.1 mg/dl (8.6-10.3); Magnesium 1.5 mg/dl (1.7-2.4); Potassium 4.5 mmol/L (3.5-5.1)
[2024-01-19 09:26] LABS: BUN Creatinine Ratio 20.4 (10-20); Creatinine Clr Calc Pharmacy 76.6 ml/min; Est GFR (African American) 96.1 ml/min; Est GFR (Non-African American) 82.9 ml/min
[2024-01-19] MEDS: MAGNESIUM SULFATE / D5W 1 GM/100 ML BAG IV SCH (10:45)
--- NOTE | 2024-01-19 10:51 | Electrocardiogram Report ---
Test Reason : Blood Pressure : */* mmHG Vent. Rate : 101 BPM Atrial Rate : 101 BPM P-R Int : 136 ms QRS Dur : 62 ms QT Int : 380 ms P-R-T Axes : 75 29 14 degrees QTcB Int : 492 ms Poor data quality, interpretation may be adversely affected Sinus tachycardia Low voltage QRS Cannot rule out Anteroseptal infarct , age undetermined Abnormal ECG When compared with ECG of 18-Jan-2024 08:53, Minimal criteria for Anteroseptal infarct are now Present QT has lengthened Confirmed by Fantasma Mccormick ([id number]) on 01/19/2024 10:51:34 AM Referred By: Cornelio Sauceda Confirmed By: Fantasma Mccormick
--- NOTE | 2024-01-19 10:53 | Electrocardiogram Report ---
Test Reason : Blood Pressure : */* mmHG Vent. Rate : 82 BPM Atrial Rate : 82 BPM P-R Int : 136 ms QRS Dur : 62 ms QT Int : 364 ms P-R-T Axes : 76 31 6 degrees QTcB Int : 425 ms Normal sinus rhythm Low voltage QRS Cannot rule out Anteroseptal infarct (cited on or before 18-Jan-2024) Nonspecific ST abnormality Abnormal ECG When compared with ECG of 18-Jan-2024 15:40, (unconfirmed) QT has shortened Confirmed by Fantasma Mccormick ([id number]) on 01/19/2024 10:53:15 AM Referred By: Cornelio Sauceda Confirmed By: Fatnasma Mccormick
--- NOTE | 2024-01-19 10:57 | Electrocardiogram Report ---
Test Reason : Blood Pressure : */* mmHG Vent. Rate : 92 BPM Atrial Rate : 92 BPM P-R Int : 140 ms QRS Dur : 60 ms QT Int : 388 ms P-R-T Axes : 74 17 14 degrees QTcB Int : 479 ms Normal sinus rhythm Low voltage QRS Poor R wave progression, consider anterior AK vs. lead placement vs. LVH T wave abnormality, consider lateral ischemia Abnormal ECG When compared with ECG of 18-Jan-2024 18:02, (unconfirmed) QT has lengthened Confirmed by Fantasma Mccormick ([id number]) on 01/19/2024 10:56:57 AM Referred By: Cornelio Sauceda Confirmed By: Fantasma Mccormick
--- NOTE | 2024-01-19 11:02 | Electrocardiogram Report ---
Test Reason : Blood Pressure : */* mmHG Vent. Rate : 94 BPM Atrial Rate : 94 BPM P-R Int : 138 ms QRS Dur : 62 ms QT Int : 392 ms P-R-T Axes : 74 21 72 degrees QTcB Int : 490 ms Normal sinus rhythm Low voltage QRS Cannot rule out Anteroseptal infarct (cited on or before 18-Jan-2024) T wave abnormality, consider lateral ischemia prolonged QT Abnormal ECG When compared with ECG of 19-Jan-2024 05:01, (unconfirmed) No significant change was found Confirmed by Fantasma Mccormick ([id number]) on 01/19/2024 11:01:43 AM Referred By: Cornelio Sauceda Confirmed By: Fantasma Mccormick
--- NOTE | 2024-01-19 11:37 | Cardiology Progress Note ---
Date of Service January 19, 2024 Assessment & Plan (1) Acute non-ST elevation myocardial infarction (NSTEMI): (2) Status post insertion of drug-eluting stent into left anterior descending (LAD) artery: (3) Ischemic cardiomyopathy: (4) NSVT (nonsustained ventricular tachycardia): (5) Sepsis due to Gram negative bacteria: (6) Hypomagnesemia: (7) Noncompliance: Plan 63-year-old male presenting with gram negative sepsis and NSTEMI without anginal symptoms. Blood culture positive for E. coli ESBL. Patient developed nonsustained ventricular tachycardia on telemetry 8 02/06. Urgent cardiac catheterization performed demonstrating 99% mid LAD stenosis. Drug-eluting sten t implanted without complication. Continue dual antiplatelet therapy for minimum of 1 year post percutaneous intervention. Continue IV amiodarone for 24 hours. If there is no further dysrhythmia o vernight, will likely discontinue amiodarone in a.m. 01/20/2024 and continue beta-odette therapy. Add Entresto 26/24 mg twice daily. Continue to optimize evidence-based heart failure therapy during hospitalization. Add spironolactone in the next 24 to 48 hours. Discontinue IV hydration. Supplement electrolytes as indicated to maintain potassium greater than 4.0, and magnesium greater than 2.0. I spent a total of 50 minutes on the date of service in preparation, delivery, and documentation of the care provided to this patient, excluding any time spent in the performance of separately billed services. Admission and Anticipated Discharge Date Admission Date: January 18, 2024 Subjective 63-year-old male seen examined the bedside. Feeling well this morning. No recurrent ventricular tachycardia overnight. Tolerating IV amiodarone. Patient taken to the cardiac catheterization lab yesterday's 02/06 urgently due to runs of ventricular tachycardia and rising troponin. Cardiac catheterization demonstrated 99% mid LAD stenosis. Drug-eluting stent implanted without complication. Review of Systems Review of Systems: All systems reviewed & are unremarkable except as noted in Subjective Physical Exam Constitutional: well nourished; no acute distress Respiratory: no respiratory distress, no labored breathing and no retractions Auscultation: lungs clear to auscultation bilaterally; no crackles, no rales, no rhonchi and no wheezes Cardiovascular: Rate/Rhythm: regular rate and regular rhythm Heart Sounds: normal S1 and normal S2; no murmur Vessels: radial pulses present; no JVD and no carotid bruit Extremities: no edema Gastrointestinal (Abdomen): Inspection/Auscultation: abdomen normal to inspection and normal bowel sounds; abdomen not distended Percussion/Palpation: abdomen soft; abdomen nontender, no guarding and abdomen not rigid Neurologic: CN's II-XI intact bilaterally and moves all extremities; no focal motor deficits Results & Data Vital Signs (Past 12 Hours) Vital Signs Temp Pulse Pulse Resp BP Pulse Ox Pulse Ox 01/19/24 11:10 37.3 C 84 16 124/79 97 01/19/24 08:00 01/19/24 07:55 88 134/87 01/19/24 07:25 37.2 C 96 H 18 131/89 97 01/19/24 07:06 84 01/19/24 05:53 95 01/19/24 02:41 37.7 C H 80 18 114/77 95 O2 Del Method O2 Del Method O2 Flow Rate 01/19/24 11:10 Nasal Cannula 2.0 01/19/24 08:00 Nasal Cannula 2 01/19/24 07:55 01/19/24 07:25 Nasal Cannula 2.0 01/19/24 07:06 01/19/24 05:53 Room Air 01/19/24 02:41 Nasal Cannula 2 Laboratory Results Cardiac Enzymes 01/18/24 01/18/24 01/19/24 Range/Units 13:00 18:49 08:38 Troponin I High Sens 49639.1 H* D 16604.2 H* 35442.0 H* D (0-20) pg/ml CBC 01/19/24 Range/Units 08:38 WBC 7.81 (4.8-10.8) K/ul RBC 4.13 L (4.70-6.10) M/uL Hgb 12.1 L (14.0-18.0) g/dl Hct 35.9 L (42.0-52.0) % Plt Count 149 (130-400) K/uL Neut # (Auto) 6.59 H (1.40-6.50) K/uL Lymph # (Auto) 0.63 L (1.20-3.40) K/uL Hood # (Auto) 0.50 (0.11-0.59) K/uL Eos # (Auto) 0.00 (0.00-0.50) K/uL Baso # (Auto) 0.02 (0.00-0.20) K/uL Comprehensive Metabolic Panel 01/18/24 01/19/24 Range/Units 13:00 08:38 Sodium 137 131 L (136-145) mmol/L Potassium 3.7 4.5 D (3.5-5.1) mmol/L Chloride 107 101 (98-107) mmol/L Carbon Dioxide 22 19 L (21-32) mmol/L BUN 19 20 (6-23) mg/dl Creatinine 0.92 0.98 (0.6-1.4) mg/dl Glucose 121 H 285 H (70-99(Fasting)) mg/dl Calcium 8.2 L 8.1 L (8.6-10.3) mg/dl Albumin 3.0 L (3.4-5.0) gm/dl Intake and Output 01/18/24 01/19/24 01/19/24 22:59 06:59 14:59 Intake Total 919.2 / 3150.043 774.593 / 3150.043 1100 / 1100 Output Total 600 / 1750 300 / 1750 Balance 319.2 / 1400.043 474.593 / 5189.337 7364 / 1100 Intake: IV 679.2 / 1990.043 274.593 / 0015.726 0100 / 1100 Amiodarone / D5w 150 mg In 100 100 / 100 ml @ 600 mls/hr IV NOW STA Rx#: [id number] Amiodarone / D5w 360 mg In 200 274.593 / 274.593 ml @ 0.5 MG/MIN 16.667 mls/hr IV .Q12H MIN Rx#:[id number] Doxycycline Hyclate 100 mg In 100 / 200 100 / 100 Dextrose 5% Mini-B 100 ml @ 50 mls/hr IV Q12H MIN Rx#:[id number] Heparin Sodium/Dextrose 25,000 141.7 / 315.45 units In 500 ml @ 0 UNITS/HR IV .Q0M MIN Rx#:[id number] Sodium Chloride 0.9% 1,000 ml @ 337.5 / 1000.0 1000 / 1000 75 mls/hr IV .[id number] MIN Rx#: [id number] Oral 240 / 1160 500 / 1160 Output: Urine 600 / 1750 300 / 1750 Other: Weight 74.8 kg Weight Measurement Method Built in [facility]
[2024-01-19] MEDS: PROMETHAZINE 12.5 MG/50.5 ML BAG IV PRN (12:44)
[2024-01-19] MEDS: VALSARTAN/SACUBITRIL 26/24MG TAB PO SCH (13:12)
[2024-01-19] MEDS: ERTAPENEM SODIUM 1,000 MG in SYRINGE 0 ML IV SCH (13:40)
--- NOTE | 2024-01-19 14:23 | Pharmacy Report ---
Pharmacy Glycemic Short Note 2 - Date of Service January 19, 2024 - Glycemic Short BSG Results (Last 24 hours): 01/18/24 01/18/24 01/18/24 13:00 15:21 18:30 Glucose 121 H POC Glucose 126 H 148 H 01/18/24 01/19/24 01/19/24 19:40 07:24 08:38 Glucose 285 H POC Glucose 169 H 256 H 01/19/24 01/19/24 11:12 11:13 Glucose POC Glucose 307 H* 298 H OUTPATIENT ANTIDIABETIC REGIMEN: * N/A * Previously prescribed metformin and Januvia, but stopped taking HbA1c: 11.3% (01/18/24) ASSESSMENT: 01/19/24: * Patient received total 48 units of insulin yesterday: 18 units basal and 30 units bolus. * Blood sugars trended down yesterday but fasting BSG today AM was elevated at 256 mg/dl. So AM basal dose increased to stress between 2 and 3. * Pre-lunch BSG trended up to 298 mg/dl. Additional basal dose of 10 units added for noon to total 26 units for today (double stress of 2). No basal insulin ordered for HS. * Novolog parameters were tightened for breakfast and tightened again at lunch but will loosen back up for dinner so that blood sugars don't trend down too much. 01/18/24: * CHELA is a 63 year old male w/ gram-negative bacteremia secondary to UTI vs. multifocal pneumonia * Receiving meropenem and doxycycline * Blood sugars > 400 mg/dL on presentation, pharmacy consulted for glycemic management * Received 12 units of Lantus, 10 units of IV regular insulin, and 18 units of SC bolus this morning * Blood sugars are now much improved, 128 mg/dL at lunchtime * On heparin gtt (mixed in dextrose) * Will be conservative w/ ongoing insulin orders today PLAN FOR INPATIENT GLYCEMIC CONTROL: * Basal insulin * Lantus 16 units SC this AM and 10 units at lunch. Will re-assess dosing tomorrow. * Bolus insulin * NovoLog per scale ACHS or Q6hrs while NPO * Goal Range: Low 110 mg/dL - High 140 mg/dL * Correction Factor: 25 mg/dL/unit * Nutritional / Prandial insulin per carb ratio of 1 unit per 8 grams CHO consumed
--- NOTE | 2024-01-19 17:48 | Hospitalist Progress Note ---
Date of Service January 19, 2024 Assessment & Plan (1) Bacteremia: Plan: per admitting service notes with addendum: 63-year-old male with past med history significant for diabetes, history of multiple kidney stones, hypertension and CAD s/p stent in 2008 as per patient but currently not taking any medication except aspirin for last few months came to the ER in the morning because of hematuria last Tuesday and Tuesday and a lot of shaking chills and was worried about kidney stone and found to have UTI and possible prostatitis and hyperglycemia and was also tachycardic. Received fluids and Rocephin and was discharged on p.o. Bactrim as patient seemed to have appointment with his family doctor the next day. But the blood cultures came back positive for gram-negative bacilli and patient was called to come back to ER. Patient spiking temperature in the ER. Heart rate in 130s. Denies any chest pain or shortness of breath. Denies palpitations. Denies any headache currently. No runny nose or sore throat. No earache. Vision is okay. Current ly no nausea. Patient states initially had back and flank pain but currently no pains. Has some burning micturition. Currently no hematuria. Normal bowel movements. No swelling in the legs. No rash. Patient states because he lost weight his blood pressure is okay currently. Used to take Januvia and metformin but stopped 2 months ago. Used to be on take statin and generic Coreg but stopped about a month ago. Says he has an appointment tomorrow with his family doctor and he wants to start back on all the required medications. Sepsis secondary to: Bacteremia, ESBL E. coli Acute UTI, ESBL E. coli Pneumonia, Left Has fever and tachycardia and leukocytosis Lactic acid 1.4 CTA chest: no PE, (+) left sided pneumonia Resp biofire negative Blood culture: Gram-negative bacilli bacteremia Urine CUlture: " continue Meropenem and Doxycycline ID consulted Gentle IV fluids given low EF 9/ Urine and blood culture growing ESBL E. coli Transition from meropenem to ertapenem per ID service recommendations Continue with doxycycline Clinically improving overall Non-ST elevated ID History of CAD s/p stent in 2008 Troponin 4063--> 12,000 EKG no acute ischemia Echo: EF reduced as per Cardiology Patient asymptomatic as per patient Except aspirin not taking other medications Started on IV heparin Continue aspirin Start Coreg 3.125 mg twice daily with holding parameters and Lipitor 40 mg daily Cardiology consulted 01/18 S/p cardiac cath last night Found to have in-stent restenosis, drug-eluting stent to LAD placed Started on aspirin, Brilinta Amiodarone IV Entresto twice daily Hyperglycemia History of diabetes Stopped taking his metformin and Januvia about 2 months ago Will give a dose of IV insulin [address] on Lantus and sliding scale Monitor blood sugars closely Follow HbA1c level: 11.3 Glycemic pharmacy consult 01/18 BSG 2 53-28 On insulin Lantus and sliding scale Pharmacy glycemic control service consulted Possible prostatitis Kidney stones CT scan done in the morning showed nonobstructing bilateral nephrolithiasis No ureteral calculi or hydronephrosis Prostatomegaly with findings of chronic outlet obstruction Urology consulted: Continue antibiotics, outpatient follow-up Mild splenomegaly on CAT scan Needs follow-up DVT prophylaxis Start Lovenox SC tomorrow Disposition Pending Will need IV antibiotics Admission and Anticipated Discharge Date Admission Date: January 18, 2024 Subjective Follow-up for sepsis, etc. Seen resting in bed, comfortable, not in distress Denies chest pain, shortness of breath, palpitations, dizziness Has intermittent dry cough, no fevers or chills No problems with urination, nausea or vomiting Appetite is not great No other new symptoms Review of Systems Review of Systems: all noted and negative except for above Physical Exam Physical Exam: General- oriented x 3, not in distress, speaks in sentences with no effort or accessory muscle use Eyes- anicteric Neck- no JVD Lungs- Positive rhonchi left lung otero, clear on the right No wheezing Heart- normal rate, regular rhythm; no murmurs Abdomen- normal bowel sounds, nondistended, soft, nontender Extremities- no pretibial edema, no calf tenderness Neuro- alert, oriented x 3; no gross focal neurologic deficits Skin- warm & dry Results & Data Results & Data Vital Signs (Past 12 Hours) Vital Signs Temp Pulse Pulse Resp BP Pulse Ox Pulse Ox 01/19/24 16:22 37.2 C 76 18 116/74 99 01/19/24 16:00 86 01/19/24 13:43 88 125/80 01/19/24 11:10 37.3 C 84 16 124/79 97 01/19/24 08:00 01/19/24 07:55 88 134/87 01/19/24 07:25 37.2 C 96 H 18 131/89 97 01/19/24 07:06 84 01/19/24 05:53 95 O2 Del Method O2 Del Method O2 Flow Rate 01/19/24 16:22 Nasal Cannula 2.0 01/19/24 16:00 01/19/24 13:43 01/19/24 11:10 Nasal Cannula 2.0 01/19/24 08:00 Nasal Cannula 2 01/19/24 07:55 01/19/24 07:25 Nasal Cannula 2.0 01/19/24 07:06 01/19/24 05:53 Room Air all noted and reviewed including below
[2024-01-19] MEDS: MELATONIN 3 MG TAB PO PRN (20:57)
[2024-01-20] MEDS: INSULIN ASPART PER UNIT CHARGE SC SCH (00:24)
[2024-01-20] MEDS: LANTUS PER UNIT CHARGE SC SCH ×2 (08:08→20:28)
--- NOTE | 2024-01-20 08:59 | Electrocardiogram Report ---
Test Reason : Blood Pressure : */* mmHG Vent. Rate : 81 BPM Atrial Rate : 81 BPM P-R Int : 132 ms QRS Dur : 56 ms QT Int : 374 ms P-R-T Axes : 65 18 206 degrees QTcB Int : 434 ms Poor data quality, interpretation may be adversely affected Normal sinus rhythm Low voltage QRS T wave abnormality, consider anterior ischemia Prolonged QT Abnormal ECG When compared with ECG of 19-Jan-2024 08:48, Nonspecific T wave abnormality has replaced inverted T waves in Lateral leads Confirmed by Fantasma Mccormick ([id number]) on 01/20/2024 8:58:35 AM Referred By: Cornelio Sauceda Confirmed By: Fantasma Mccormick
[2024-01-20 09:23] LABS: BUN Creatinine Ratio 16.7 (10-20); Calcium 7.2 mg/dl (8.6-10.3); Creatinine Clr Calc Pharmacy 106.9 ml/min; Est GFR (African American) 116.7 ml/min; Est GFR (Non-African American) 100.7 ml/min; Magnesium 1.3 mg/dl (1.7-2.4); Potassium 3.3 mmol/L (3.5-5.1)
[2024-01-20] MEDS: MAGNESIUM SULFATE / D5W 1 GM/100 ML BAG IV SCH (10:17)
[2024-01-20] MEDS: MAGNESIUM OXIDE 400 MG TAB PO SCH (10:17)
[2024-01-20] MEDS: POTASSIUM CHLORIDE CRTAB 20 MEQ TABCR PO STA ×2 (10:17→16:56)
--- NOTE | 2024-01-20 13:01 | Cardiology Progress Note ---
Date of Service January 20, 2024 Assessment & Plan (1) Acute non-ST elevation myocardial infarction (NSTEMI): (2) Status post insertion of drug-eluting stent into left anterior descending (LAD) artery: (3) Ischemic cardiomyopathy: (4) NSVT (nonsustained ventricular tachycardia): (5) Sepsis due to Gram negative bacteria: (6) Hypomagnesemia: (7) Hypokalemia: (8) Noncompliance: Plan 63-year-old male presenting with gram negative sepsis and NSTEMI without anginal symptoms. Blood culture positive for E. coli ESBL. Patient developed nonsustained ventricular tachycardia on telemetry 8 02/06. Urgent cardiac catheterization performed demonstrating 99% mid LAD stenosis. Drug-eluting stent implanted without complication. Discontinue IV hydration. Hypokalemia and hypomagnesemia noted on a.m. labs. Supplement as indicated. Repeat basic metabolic panel and magnesium level this afternoon. Add spironolactone 25 mg daily. Discontinue IV amiodarone. Discontinue metoprolol to tartrate in favor of Toprol-XL 50 mg twice daily. Continue dual antiplatelet therapy for minimum of 1 year post percutaneous intervention. Entresto 26/24 mg added yesterday 01/19/2024. Discussed potential need for LifeVest placement at time of discharge. Repeat limited resting 2D transthoracic echocardiogram on 01/23/2024 for reassessment of LV function. Consider LifeVest placement pending review. I spent a total of 45 minutes on the date of service in preparation, delivery, and documentation of the care provided to this patient, excluding any time spent in the performance of separately billed services. Admission and Anticipated Discharge Date Admission Date: January 18, 2024 Subjective 63-year-old male seen and examined at the bedside. Feeling better today. Denies chest pain or shortness of breath. Continues to receive IV hydration, normal saline at 75 cc/h. No recurrent dysrhythmia on telemetry. Significant hypokalemia and hypomagnesemia noted on a.m. labs. Review of Systems Review of Systems: All systems reviewed & are unremarkable except as noted in Subjective Physical Exam Constitutional: well nourished; no acute distress Respiratory: no respiratory distress, no labored breathing and no retractions Auscultation: lungs clear to auscultation bilaterally; no crackles, no rales, no rhonchi and no wheezes Cardiovascular: Rate/Rhythm: regular rate and regular rhythm Heart Sounds: normal S1 and normal S2; no murmur Vessels: radial pulses present; no JVD and no carotid bruit Extremities: no edema Gastrointestinal (Abdomen): Inspection/Auscultation: abdomen normal to inspection and normal bowel sounds; abdomen not distended Percussion/Palpation: abdomen soft; abdomen nontender, no guarding and abdomen not rigid Neurologic: CN's II-XI intact bilaterally and moves all extremities; no focal motor deficits Results & Data Vital Signs (Past 12 Hours) Vital Signs Temp Pulse Pulse Resp BP Pulse Ox O2 Del Method 01/20/24 11:44 36.6 C 77 18 130/82 98 Room Air 01/20/24 08:39 99 Room Air 01/20/24 07:52 36.8 C 81 18 128/80 99 Room Air 01/20/24 07:45 77 01/20/24 03:44 36.8 C 75 18 116/73 97 Nasal Cannula O2 Flow Rate 01/20/24 11:44 01/20/24 08:39 01/20/24 07:52 01/20/24 07:45 01/20/24 03:44 2.0
[2024-01-20] MEDS: SPIRONOLACTONE 25 MG TAB PO SCH (13:33)
[2024-01-20] MEDS: METOPROLOL SUCC 50MG EXT REL TAB PO SCH (13:33)
--- NOTE | 2024-01-20 15:28 | Pharmacy Report ---
Pharmacy Glycemic Short Note 2 - Date of Service January 20, 2024 - Glycemic Short BSG Results (Last 24 hours): 01/19/24 01/19/24 01/20/24 16:24 19:20 00:05 Glucose POC Glucose 253 H 236 H 216 H 01/20/24 01/20/24 01/20/24 03:28 07:31 08:31 Glucose 240 H POC Glucose 180 H 176 H 01/20/24 11:36 Glucose POC Glucose 228 H OUTPATIENT ANTIDIABETIC REGIMEN: * N/A * Previously prescribed metformin and Januvia, but stopped taking HbA1c: 11.3% (01/18/24) ASSESSMENT: 01/20/24: * Patient received total 60 units of insulin yesterday; 26 units basal and 34 units bolus. * BSGs yesterday were all elevated yesterday. Fasting BSG today was 176 mg/dl. Pre-lunch BSG higher at 228 mg/dl. * Basal insulin increased to 35 units this morning which is around 30% increase from yesterday but added in the bolus insulins that patient got overnight last night. Also added a HS scale for tonight based on BSG * Novolog parameters tightened. 01/19/24: * Patient received total 48 units of insulin yesterday: 18 units basal and 30 units bolus. * Blood sugars trended down yesterday but fasting BSG today AM was elevated at 256 mg/dl. So AM basal dose increased to stress between 2 and 3. * Pre-lunch BSG trended up to 298 mg/dl. Additional basal dose of 10 units added for noon to total 26 units for today (double stress of 2). No basal insulin ordered for HS. * Novolog parameters were tightened for breakfast and tightened again at lunch but will loosen back up for dinner so that blood sugars don't trend down too much. 01/18/24: * CHELA is a 63 year old male w/ gram-negative bacteremia secondary to UTI vs. multifocal pneumonia * Receiving meropenem and doxycycline * Blood sugars > 400 mg/dL on presentation, pharmacy consulted for glycemic management * Received 12 units of Lantus, 10 units of IV regular insulin, and 18 units of SC bolus this morning * Blood sugars are now much improved, 128 mg/dL at lunchtime * On heparin gtt (mixed in dextrose) * Will be conservative w/ ongoing insulin orders today PLAN FOR INPATIENT GLYCEMIC CONTROL: * Basal insulin * Lantus 35 units SC QAM * Lantus 5-10 units scale SC HS based on BSG * Will re-assess dosing tomorrow. * Bolus insulin * NovoLog per scale ACHS or Q6hrs while NPO * Goal Range: Low 110 mg/dL - High 140 mg/dL * Correction Factor: 15 mg/dL/unit * Nutritional / Prandial insulin per carb ratio of 1 unit per 4.5 grams CHO consumed
--- NOTE | 2024-01-20 15:30 | Electrocardiogram Report ---
Test Reason : Blood Pressure : */* mmHG Vent. Rate : 78 BPM Atrial Rate : 78 BPM P-R Int : 142 ms QRS Dur : 62 ms QT Int : 526 ms P-R-T Axes : 77 37 181 degrees QTcB Int : 599 ms Normal sinus rhythm Low voltage QRS T wave abnormality, consider lateral ischemia Prolonged QT Abnormal ECG When compared with ECG of 20-Jan-2024 06:36, Inverted T waves have replaced nonspecific T wave abnormality in Lateral leads QT has lengthened Confirmed by Fantasma Mccormick ([id number] on 01/20/2024 3:29:51 PM Referred By: Cornelio Sauceda Confirmed By: Fantasma Mccormick
[2024-01-20 15:51] LABS: BUN Creatinine Ratio 17.6 (10-20); Calcium 7.9 mg/dl (8.6-10.3); Est GFR (African American) 115.4 ml/min; Est GFR (Non-African American) 99.6 ml/min; Magnesium 1.8 mg/dl (1.7-2.4); Potassium 3.7 mmol/L (3.5-5.1)
--- NOTE | 2024-01-20 18:32 | Hospitalist Progress Note ---
Date of Service January 20, 2024 Assessment & Plan (1) Bacteremia: Plan: per admitting service notes with addendum: 63-year-old male with past med history significant for diabetes, history of multiple kidney stones, hypertension and CAD s/p stent in 2008 as per patient but currently not taking any medication except aspirin for last few months came to the ER in the morning because of hematuria last Tuesday and Tuesday and a lot of shaking chills and was worried about kidney stone and found to have UTI and possible prostatitis and hyperglycemia and was also tachycardic. Received fluids and Rocephin and was discharged on p.o. Bactrim as patient seemed to have appointment with his family doctor the next day. But the blood cultures came back positive for gram-negative bacilli and patient was called to come back to ER. Patient spiking temperature in the ER. Heart rate in 130s. Denies any chest pain or shortness of breath. Denies palpitations. Denies any headache currently. No runny nose or sore throat. No earache. Vision is okay. Current ly no nausea. Patient states initially had back and flank pain but currently no pains. Has some burning micturition. Currently no hematuria. Normal bowel movements. No swelling in the legs. No rash. Patient states because he lost weight his blood pressure is okay currently. Used to take Januvia and metformin but stopped 2 months ago. Used to be on take statin and generic Coreg but stopped about a month ago. Says he has an appointment tomorrow with his family doctor and he wants to start back on all the required medications. Sepsis secondary to: Bacteremia, ESBL E. coli Acute UTI, ESBL E. coli Pneumonia, Left Has fever and tachycardia and leukocytosis Lactic acid 1.4 CTA chest: no PE, (+) left sided pneumonia Resp biofire negative Blood culture: Gram-negative bacilli bacteremia Urine CUlture: " continue Meropenem and Doxycycline ID consulted Gentle IV fluids given low EF 01/18 Urine and blood culture growing ESBL E. coli Transition from meropenem to ertapenem per ID service recommendations Continue with doxycycline Clinically improving overall 01/19 Clinically improving Afebrile, blood pressure stable On room air Continue ertapenem IV Discussed with ID specialist Dr. Akira Farmer transition to Levaquin p.o. once patient is fully off amiodarone, QT interval below 500 To complete total of 2-week course of antibiotics Non-ST elevated KS Cardiomyopathy History of CAD s/p stent in 2008 Troponin 4063--> 12,000 EKG no acute ischemia Echo: EF 20 to 25% Patient asymptomatic as per patient Except aspirin not taking other medications Started on IV heparin Continue aspirin Start Coreg 3.125 mg twice daily with holding parameters and Lipitor 40 mg daily Cardiology consulted 01/18 S/p cardiac cath last night Found to have in-stent restenosis, drug-eluting stent to LAD placed Started on aspirin, Brilinta Amiodarone IV Entresto twice daily 01/19 Chest pain-free, no shortness of breath, no cardiac symptoms IV amiodarone discontinued Started on Toprol XL 50 mg p.o. twice daily, Aldactone 25 mg p.o. daily, Entresto twice daily Also on aspirin and Brilinta since cardiac cath Plan to repeat echocardiogram on Tuesday, January 23, 2024, If without improvement, patient will be placed on a LifeVest Hyperglycemia History of diabetes Stopped taking his metformin and Januvia about 2 months ago Will give a dose of IV insulin [address] on Lantus and sliding scale Monitor blood sugars closely Follow HbA1c level: 11.3 Glycemic pharmacy consult 01/18 BSG 2 53-28 On insulin Lantus and sliding scale Pharmacy glycemic control service consulted 01/19 BSG's 1 83-2 05 Possible prostatitis Kidney stones CT scan done in the morning showed nonobstructing bilateral nephrolithiasis No ureteral calculi or hydronephrosis Prostatomegaly with findings of chronic outlet obstruction Urology consulted: Continue antibiotics, outpatient follow-up Mild splenomegaly on CAT scan Needs follow-up DVT prophylaxis Start Lovenox SC Disposition Pending Hopefully discharge to home with p.o. antibiotics upon discharge, vomiting clear ed by cardiology service Admission and Anticipated Discharge Date Admission Date: January 18, 2024 Subjective Follow-up for sepsis, bacteremia, UTI, NSTEMI, etc. Seen resting in bed, comfortable, not in distress, in good spirits States he continues to feel improved daily Denies chest pain, shortness of breath, palpitations, dizziness Denies abdominal pain, nausea vomiting, fevers or chills, problems with urination Ambulating in the room with no problems No other new symptoms Review of Systems Review of Systems: all noted and negative except for above Physical Exam Physical Exam: General- oriented x 3, not in distress, speaks in sentences with no effort or accessory muscle use Eyes- anicteric Neck- no JVD Lungs- Mild rhonchi on the left lower lung otero much improved, clear on the right Heart- normal rate, regular rhythm; no murmurs Abdomen- normal bowel sounds, nondistended, soft, No tenderness Extremities- no pretibial edema, no calf tenderness Neuro- alert, oriented x 3; no gross focal neurologic deficits Skin- warm & dry Results & Data Results & Data Vital Signs (Past 12 Hours) Vital Signs Temp Pulse Pulse Resp BP Pulse Ox O2 Del Method 01/20/24 16:39 87 01/20/24 14:33 37.0 C 80 18 112/74 96 Room Air 01/20/24 11:44 36.6 C 77 18 130/82 98 Room Air 01/20/24 08:39 99 Room Air 01/20/24 07:52 36.8 C 81 18 128/80 99 Room Air 01/20/24 07:45 77 all noted and reviewed including below
[2024-01-20] MEDS: ENOXAPARIN INJ 40 MG/0.4 ML SYR SQ SCH (20:28)
[2024-01-21] MEDS: INSULIN ASPART PER UNIT CHARGE SC SCH (01:57)
[2024-01-21 08:01] LABS: Hematocrit (blood only) 40.7 % (42.0-52.0); Hemoglobin 14.1 g/dl (14.0-18.0); Mean Corpuscular Hemoglobin 29.4 pg (25.0-34.0); Mean Corpuscular Hgb Conc 34.6 g/dL (32.0-36.0); Mean Corpuscular Volume 84.8 fL (80.0-100.0); Mean Platelet Volume 9.3 fL (9.4-12.4); Platelet Count 216 K/uL (130-400); RDW Coefficient of Variation 12.1 % (11.5-14.5); RDW Standard Deviation 37.5 fL (36.4-46.3); White Blood Count 7.54 K/ul (4.8-10.8)
[2024-01-21 08:17] LABS: Albumin Globulin Ratio 1.2 (0.9-2); BUN Creatinine Ratio 11.7 (10-20); Bilirubin,Total 0.6 mg/dl (0.2-1.0); Calcium 8.4 mg/dl (8.6-10.3); Creatinine Clr Calc Pharmacy 99.9 ml/min; Est GFR (African American) 113.5 ml/min; Est GFR (Non-African American) 97.9 ml/min; Globulin 2.5 gm/dl (2.5-4.0); Magnesium 1.5 mg/dl (1.7-2.4); Phosphorus 3.9 mg/dl (2.5-4.9); Potassium 3.9 mmol/L (3.5-5.1); Total Protein 5.5 gm/dl (6.0-8.3)
[2024-01-21 08:25] LABS: Basophils # (auto) 0.03 K/uL (0.00-0.20); Basophils % (auto) 0.4 %; Eosinophils # (auto) 0.01 K/uL (0.00-0.50); Eosinophils % (auto) 0.1 %; Immature Granulocytes # (auto) 0.08 K/uL (0.01-0.20); Immature Granulocytes % (auto) 1.1 %; Lymphocytes # (auto) 1.18 K/uL (1.20-3.40); Lymphocytes % (auto) 15.6 %; Monocytes # (auto) 0.51 K/uL (0.11-0.59); Monocytes % (auto) 6.8 %; Neutrophils # (auto) 5.73 K/uL (1.40-6.50)
--- NOTE | 2024-01-21 10:44 | Cardiology Progress Note ---
<Statement entered by Belinda Morris, - 01/21/24 16:20> I have reviewed the advanced practitioner's documentation and agree with the plan of care. I accept the responsibility for the associated risk. Pt seen in cardiology f/u due to ICM, CAD s/p PCI LAD due to instent restenosis to and VT he is off amiodarone and since the PCI is no longer having any VT He feels well-no complaints He will have a repeat echo on tuesday if the EF is still down then will arrange for him to have an external defibrillator upon discharge Monitor on telemetry He seems to be tolerating the brilinta and it sounds like he has good insurance that it should be cost effective; if it is too expensive will need to switch to plavix I discussed the case with the hospitalist and he agreed with my recommendations Date of Service January 21, 2024 Assessment & Plan (1) Acute non-ST elevation myocardial infarction (NSTEMI): (2) Status post insertion of drug-eluting stent into left anterior descending (LAD) artery: (3) Ischemic cardiomyopathy: (4) NSVT (nonsustained ventricular tachycardia): (5) Sepsis due to Gram negative bacteria: (6) Hypomagnesemia: (7) Hypokalemia: (8) Noncompliance: Plan 63-year-old male presenting with gram negative sepsis and NSTEMI without anginal symptoms. Blood culture positive for E. coli ESBL. Patient developed nonsustained ventricular tachycardia on telemetry. Urgent cardiac catheterization performed demonstrating 99% mid LAD stenosis. Drug-eluting stent implanted without complication. HR and BP currently well controlled Magnesium level noted to be low, additional 2 gm IV Magnesium already ordered continue to monitor replace electrolytes as necessary, recommend magnesium greater than 2 and potassium greater than 4 Continue ASA, atorvastatin, Brilinta, spironolactone, and Toprol-XL. Continue dual antiplatelet therapy for minimum of 1 year post percutaneous intervention. Entresto 26/24 mg started 01/19/2024. Discussed potential need for external defibrillator placement at time of discharge. Repeat limited resting 2D transthoracic echocardiogram on 01/23/2024 for reassessment of LV function Case discussed with Dr. Morris, see her attestation for additional recommendations MILLI Pandya [facility] Cardiology Admission and Anticipated Discharge Date Admission Date: January 18, 2024 Subjective 63 year old male seen in cardiology follow up in regard to STEMI and ICM in the setting of gram negative sepsis. has been feeling slightly better each day. He is sitting up in the chair resting comfortably at the time of my evaluation. denies chest pain, palpitations, shortness of breath, dyspnea on exertion, orthopnea, edema, dizziness or syncope Review of Systems Review of Systems: All systems reviewed & are unremarkable except as noted in Subjective Physical Exam Constitutional: WD/WN, vitals as above well developed and well nourished; no acute distress Respiratory: normal respiratory effort, lungs clear to auscultation Cardiovascular: RRR, no murmur, no edema Rate/Rhythm: regular rate and regular rhythm Heart Sounds: normal S1; no murmur Gastrointestinal (Abdomen): normal bowel sounds, soft, nontender, no hepatosplenomegaly Skin: no rashes, warm and dry Psychiatric: A+Ox3, euthymic affect Results & Data Vital Signs (Past 12 Hours) Vital Signs Temp Pulse Pulse Resp BP Pulse Ox O2 Del Method 01/21/24 07:37 71 01/21/24 07:31 36.9 C 77 18 126/80 95 Room Air 01/21/24 01:54 36.7 C 74 18 122/76 95 Room Air 01/21/24 00:04 37.4 C 72 18 111/73 94 Room Air 01/20/24 23:05 36.6 C 72 18 121/76 96 Room Air Laboratory Results Laboratory Results WBC 7.54 K/ul (4.8-10.8) 01/21/24 07:33 RBC 4.80 M/uL (4.70-6.10) 01/21/24 07:33 Hgb 14.1 g/dl (14.0-18.0) 01/21/24 07:33 Hct 40.7 % (42.0-52.0) L 01/21/24 07:33 MCV 84.8 fL (80.0-100.0) 01/21/24 07:33 MCH 29.4 pg (25.0-34.0) 01/21/24 07:33 MCHC 34.6 g/dL (32.0-36.0) 01/21/24 07:33 RDW Std Deviation 37.5 fL (36.4-46.3) 01/21/24 07:33 RDW Coeff of Quoc 12.1 % (11.5-14.5) 01/21/24 07:33 Plt Count 216 K/uL (130-400) 01/21/24 07:33 MPV 9.3 fL (9.4-12.4) L 01/21/24 07:33 Immature Gran % (Auto) 1.1 % 01/21/24 07: Neut % (Auto) 76.0 % 01/21/24 07:33 Lymph % (Auto) 15.6 % 01/21/24 07:33 Ocean % (Auto) 6.8 % 01/21/24 07:33 Eos % (Auto) 0.1 % 01/21/24 07:33 Baso % (Auto) 0.4 % 01/21/24 07: Neut # (Auto) 5.73 K/uL (1.40-6.50) 01/21/24 07:33 Lymph # (Auto) 1.18 K/uL (1.20-3.40) L 01/21/24 07:33 Ocean # (Auto) 0.51 K/uL (0.11-0.59) 01/21/24 07:33 Eos # (Auto) 0.01 K/uL (0.00-0.50) 01/21/24 07:33 Baso # (Auto) 0.03 K/uL (0.00-0.20) 01/21/24 07:33 Immature Gran # (Auto) 0.08 K/uL (0.01-0.20) 01/21/24 07:33 PT 10.8 Seconds (9.0-12.0) 01/18/24 02:04 INR 1.0 (0.9-1.1) 01/18/24 02:04 APTT 26 Seconds (21-31) 01/18/24 02:04 PTT Ratio 1.0 01/18/24 02:04 Activ Coag Time Kaolin 220 SECONDS (94-140) H 01/18/24 17:20 Heparin Anti-Xa, Unfract 0.21 IU/ml (0.3-0.7) L 01/18/24 15:13 Sodium 138 mmol/L (136-145) 01/21/24 07:33 Potassium 3.9 mmol/L (3.5-5.1) 01/21/24 07:33 Chloride 104 mmol/L (98-107) 01/21/24 07:33 Carbon Dioxide 29 mmol/L (21-32) 01/21/24 07:33 Anion Gap 5 (3-11) 01/21/24 07:33 BUN 9 mg/dl (6-23) 01/21/24 07:33 Creatinine 0.77 mg/dl (0.6-1.4) 01/21/24 07:33 Est Cr Clr Drug Dosing 99.9 ml/min 01/21/24 07:33 Est GFR ( Amer) 113.5 ml/min 01/21/24 07:33 Est GFR (Non-Af Amer) 97.9 ml/min 01/21/24 07:33 BUN/Creatinine Ratio 11.7 (10-20) 01/21/24 07:33 Glucose 111 mg/dl (70-99(Fasting)) H 01/21/24 07:33 POC Glucose 110 mg/dl (70-99) H 01/21/24 07:18 Fasting Glucose 205 mg/dl (70-99) H 01/20/24 14:53 Estimat Average Glucose 278 mg/dl 01/18/24 07:07 Hemoglobin A1c 11.3 % (4.5-5.6) H 01/18/24 07:07 Lactate 1.4 mmol/L (0.4-2.0) 01/18/24 02:04 Calcium 8.4 mg/dl (8.6-10.3) L 01/21/24 07:33 Ionized Calcium 1.13 mmol/L (1.12-1.32) 01/18/24 15:13 Phosphorus 3.9 mg/dl (2.5-4.9) 01/21/24 07:33 Magnesium 1.5 mg/dl (1.7-2.4) L 01/21/24 07:33 Total Bilirubin 0.6 mg/dl (0.2-1.0) 01/21/24 07:33 Direct Bilirubin 0.2 mg/dl (0-0.2) 01/18/24 02:04 AST 33 U/L (13-39) 01/21/24 07:33 ALT 36 U/L (7-52) 01/21/24 07:33 Alkaline Phosphatase 97 U/L (34-104) 01/21/24 07:33 Troponin I High Sens 85409.0 pg/ml (0-20) H* D 01/19/24 08:38 Total Protein 5.5 gm/dl (6.0-8.3) L 01/21/24 07:33 Albumin 3.0 gm/dl (3.4-5.0) L 01/21/24 07:33 Globulin 2.5 gm/dl (2.5-4.0) 01/21/24 07:33 Albumin/Globulin Ratio 1.2 (0.9-2) 01/21/24 07:33 Triglycerides 212 mg/dl (0-150) H 01/18/24 07:07 Cholesterol 111 mg/dl (0-200) 01/18/24 07:07 LDL Cholesterol, Calc 57 mg/dl 01/18/24 07:07 VLDL Cholesterol, Calc 42 mg/dl (0-30) H 01/18/24 07:07 HDL Cholesterol 12 mg/dl 01/18/24 07:07 Cholesterol/HDL Ratio 9.3 (0-5) H 01/18/24 07:07 Procalcitonin 9.39 ng/ml (0-0.5) H 01/18/24 02:04 Adenovirus (PCR) Not Detected (NotDetected) 01/18/24 03:47 B. pertussis DNA (PCR) Not Detected (NotDetected) 01/18/24 03:47 B.parapertussis DNA PCR Not Detected (NotDetected) 01/18/24 03:47 C. pneumoniae DNA (PCR) Not Detected (NotDetected) 01/18/24 03:47 Coronavirus OC43 (PCR) Not Detected (NotDetected) 01/18/24 03:47 Coronavirus HKU1 (PCR) Not Detected (NotDetected) 01/18/24 03:47 Coronavirus 229E (PCR) Not Detected (NotDetected) 01/18/24 03:47 SARS-CoV-2 (PCR) Not Detected (NotDetected) 01/18/24 03:47 Coronavirus NL63 (PCR) Not Detected (NotDetected) 01/18/24 03:47 Human Metapneumovir PCR Not Detected (NotDetected) 01/18/24 03:47 Influenza Type A (PCR) Not Detected (NotDetected) 01/18/24 03:47 Influenza Type B (PCR) Not Detected (NotDetected) 01/18/24 03:47 M. pneumoniae (PCR) Not Detected (NotDetected) 01/18/24 03:47 Parainfluenza 1 (PCR) Not Detected (NotDetected) 01/18/24 03:47 Parainfluenza 2 (PCR) Not Detected (NotDetected) 01/18/24 03:47 Parainfluenza 3 (PCR) Not Detected (NotDetected) 01/18/24 03:47 Parainfluenza 4 (PCR) Not Detected (NotDetected) 01/18/24 03:47 RSV (PCR) Not Detected (NotDetected) 01/18/24 03:47 Entero/Rhino (PCR) Not Detected (NotDetected) 01/18/24 03:47 Impressions Chest X-Ray 01/18/24 01:58 XR chest 1V portable CLINICAL HISTORY: Sepsis TECHNIQUE: Single frontal radiograph of the chest was obtained. Comparison: None available at the time of this dictation. FINDINGS: No lines and tubes are seen. The cardiomediastinal silhouette is normal. Left midlung airspace opacities are seen. No evidence of pleural effusion or pneumothorax. IMPRESSION: Left midlung airspace opacities may represent atelectasis, pneumonia, and/or aspiration. ACT 112: Negative or not required by law. Electronically signed by: Raimundo Tabares M.D. 01/18/2024 7:46 AM Chest CTA 01/18/24 03:04 Exam(s): CTA CHEST IV Amt: 118 ml optiray 320 EXAM: CT Angiography Chest With Intravenous Contrast CLINICAL HISTORY: Reason for exam: PE. TECHNIQUE: Axial computed tomographic angiography images of the chest with intravenous contrast. CTDI is 36.96 mGy and DLP is 604.23 mGy-cm. Automated exposure control was utilized for the study. A dose lowering technique was utilized adhering to the principles of ALARA. MIP reconstructed images were created and reviewed. COMPARISON: No relevant prior studies available. FINDINGS: Pulmonary arteries: Unremarkable. No pulmonary embolism. Aorta: Atherosclerotic changes of the aorta. No thoracic aortic aneurysm. Lungs: Patchy ground-glass airspace consolidation throughout the LEFT lung, consistent with multilobar pneumonia. Pleural space: Unremarkable. No significant effusion. No pneumothorax. Heart: Cardiomegaly. No significant pericardial effusion. No evidence of RV dysfunction. Bones/joints: Degenerative changes of the spine. No acute fracture. No dislocation. Soft tissues: Unremarkable. Lymph nodes: Unremarkable. No enlarged lymph nodes. Liver: Hepatic steatosis. IMPRESSION: 1. No pulmonary embolism. 2. Patchy ground-glass airspace consolidation throughout the LEFT lung, consistent with multilobar pneumonia. Electronically signed by: Jona Wadsworth MD 01/18/24 04:[address] 01/18/24 10:46 CT chest diagnostic wo con CLINICAL HISTORY: r/o pneumonia, pleural effusion TECHNIQUE: Multidetector row helical CT of the chest was performed. Coronal and sagittal reformations were obtained. Automated dose lowering techniques and/or adjustment according to patient size were utilized for this exam. CT DOSE: 476.48 mGy.cm Comparison: Comparison is made to CT chest 01/18/2024 FINDINGS: Lungs and pleura: Atelectasis versus scarring is seen in the dependent portions of the lungs. Trace bilateral pleural effusions are seen. There are patchy groundglass opacities predominantly in the left lung, similar in extent to prior exam. Heart and pericardium: Heart size is normal. No pericardial effusion. Vessels: Severe atherosclerotic changes in the aorta and coronary arteries. Mediastinum and jackelyn: Subcentimeter lymph nodes are seen. Chest wall and lower neck: Unremarkable. Abdomen: Unremarkable. Bones: Degenerative changes in the thoracic spine. IMPRESSION: Pneumonia is seen predominantly in the left lung. Trace bilateral pleural eff usions are seen. Reactive lymph nodes are seen. ACT 112: Negative or not required by law. Electronically signed by: Raimundo Tabares M.D. 01/18/2024 2:45 PM Medications Administered Current Inpatient Medications Acetaminophen (Acetaminophen 325 Mg Tab) 650 mg PO Q4H PRN PRN Reason: Pain or Fever Stop: 02/17/24 05:52 Last Admin: 01/18/24 10:31 Dose: 650 mg Aspirin (Aspirin 81 Mg Ectab) 81 mg PO QAM REPLACED BY [facility] Stop: 02/18/24 08:59 Last Admin: 01/21/24 08:25 Dose: 81 mg Atorvastatin Calcium (Atorvastatin 40 Mg Tab) 80 mg PO QAM REPLACED BY [facility] Stop: 02/17/24 08:59 Last Admin: 01/21/24 08:25 Dose: 80 mg Dextrose (Dextrose 50% 50 Ml Syringe) 25 - 50 ml IV UD PRN; Protocol PRN Reason: Hypoglycemia Protocol Stop: 02/17/24 05:52 Enoxaparin Sodium (Enoxaparin Inj 40 Mg/0.4 Ml Syr) 40 mg SQ Q24H MIN Stop: 02/19/24 18:44 Last Admin: 01/20/24 20:28 Dose: 40 mg Glucagon (Glucagon For Inj 1 Mg Vial) 1 mg SQ UD PRN; Protocol PRN Reason: Hypoglycemia Protocol Stop: 02/17/24 05:52 Glucose (Glucose 40% Gel 15 Gm Tube) 15 - 30 gm PO UD PRN; Protocol PRN Reason: Hypoglycemia Protocol Stop: 02/17/24 05:52 Glucose (Glucose 10 Tab/Tube) 4 - 8 tab PO UD PRN; Protocol PRN Reason: Hypoglycemia Treatment Stop: 02/17/24 05:52 Amiodarone HCl/Dextrose (Nexterone / D5w) 360 mg in 200 mls @ 16.667 mls/hr IV .Q12H MIN Stop: 02/18/24 01:59 Last Infusion: 01/20/24 10:50 Dose: Infused Ertapenem 1,000 mg/ Syringe 10 mls @ 2 mls/min IV Q24H MIN Stop: 02/01/24 07:59 Last Admin: 01/20/24 13:58 Dose: 2 mls/min Promethazine HCl (Phenergan) 12.5 mg in 50.5 mls @ 202 mls/hr IV Q6H PRN PRN Reason: Nausea And Vomiting Stop: 02/18/24 11:39 Last Infusion: 01/19/24 13:03 Dose: Infused Insulin Aspart (Insulin Aspart Per Unit Charge) 0 units SC ACHS REPLACED BY [facility] Stop: 02/17/24 05:59 Last Admin: 01/21/24 08:18 Dose: 8 units Insulin Glargine (Lantus Per Unit Charge) 35 units SC QAM REPLACED BY [facility] Stop: 02/19/24 08:59 Last Admin: 01/21/24 08:18 Dose: 35 units Insulin Glargine (Lantus Per Unit Charge) 0 units SC [facility]; Protocol Stop: 02/19/24 20:59 Last Admin: 01/20/24 20:28 Dose: 10 units Lactobacillus Acidophilus (Advanced Probiotic 625 Mg Capsule) 1,250 mg PO DAILY REPLACED BY [facility] Stop: 02/17/24 09:44 Last Admin: 01/21/24 08:26 Dose: 1,250 mg Magnesium Oxide (Magnesium Oxide 400 Mg Tab) 400 mg PO BID REPLACED BY [facility] Stop: 02/19/24 10:14 Last Admin: 01/21/24 08:25 Dose: 400 mg Melatonin (Melatonin 3 Mg Tab) 6 mg PO HS PRN PRN Reason: Sleep Stop: 02/18/24 19:47 Last Admin: 01/20/24 20:29 Dose: 6 mg Metoprolol Succinate (Metoprolol Succ 50mg Ext Rel Tab) 50 mg PO BID REPLACED BY [facility] Stop: 02/19/24 12:59 Last Admin: 01/21/24 08:26 Dose: 50 mg Miscellaneous (Carbohydrates For Hypoglycemia ) 15 - 30 gm PO UD PRN PRN Reason: Hypoglycemia Protocol Stop: 02/17/24 05:52 Miscellaneous Information (Pharmacy Glycemic Mgmt Consult) 1 each N/A UD PRN PRN Reason: Consult Stop: 02/17/24 05:52 Morphine Sulfate (Morphine Sulfate 4 Mg/Ml 1 Ml Carp\Vial) 3 mg IV Q6H PRN PRN Reason: SEVERE PAIN Stop: 02/01/24 15:06 Last Admin: 01/19/24 03:47 Dose: 3 mg Nitroglycerin (Nitroglycerin Sl 0.4 Mg/Tab Tab) 0.4 mg SL Q5M PRN PRN Reason: Chest Pain Stop: 02/17/24 05:52 Oxycodone HCl (Oxycodone Hcl Ir 5 Mg Tab (Immediate Release)) 5 mg PO Q4H PRN PRN Reason: severe pain Stop: 02/01/24 12:17 Last Admin: 01/18/24 12:46 Dose: 5 mg Sacubitril/Valsartan (Valsartan/Sacubitril 26/24mg Tab) 1 tab PO BID REPLACED BY [facility] Stop: 02/18/24 11:44 Last Admin: 01/21/24 08:26 Dose: 1 tab Spironolactone (Spironolactone 25 Mg Tab) 25 mg PO QAM REPLACED BY [facility] Stop: 02/19/24 12:59 Last Admin: 01/21/24 08:26 Dose: 25 mg Ticagrelor (Ticagrelor 90 Mg Tab) 90 mg PO BID MIN Stop: 02/17/24 20:59 Last Admin: 01/21/24 08:26 Dose: 90 mg
[2024-01-21] MEDS: MAGNESIUM SULFATE / D5W 1 GM/100 ML BAG IV ONE (11:18)
--- NOTE | 2024-01-21 13:00 | Hospitalist Progress Note ---
Date of Service January 21, 2024 Assessment & Plan (1) Bacteremia: Plan: per admitting service notes with addendum: 63-year-old male with past med history significant for diabetes, history of multiple kidney stones, hypertension and CAD s/p stent in 2008 as per patient but currently not taking any medication except aspirin for last few months came to the ER in the morning because of hematuria last Tuesday and Tuesday and a lot of shaking chills and was worried about kidney stone and found to have UTI and possible prostatitis and hyperglycemia and was also tachycardic. Received fluids and Rocephin and was discharged on p.o. Bactrim as patient seemed to have appointment with his family doctor the next day. But the blood cultures came back positive for gram-negative bacilli and patient was called to come back to ER. Patient spiking temperature in the ER. Heart rate in 130s. Denies any chest pain or shortness of breath. Denies palpitations. Denies any headache currently. No runny nose or sore throat. No earache. Vision is okay. Current ly no nausea. Patient states initially had back and flank pain but currently no pains. Has some burning micturition. Currently no hematuria. Normal bowel movements. No swelling in the legs. No rash. Patient states because he lost weight his blood pressure is okay currently. Used to take Januvia and metformin but stopped 2 months ago. Used to be on take statin and generic Coreg but stopped about a month ago. Says he has an appointment tomorrow with his family doctor and he wants to start back on all the required medications. Sepsis secondary to: Bacteremia, ESBL E. coli Acute UTI, ESBL E. coli Pneumonia, Left Has fever and tachycardia and leukocytosis Lactic acid 1.4 CTA chest: no PE, (+) left sided pneumonia Resp biofire negative Blood culture: Gram-negative bacilli bacteremia Urine CUlture: " continue Meropenem and Doxycycline ID consulted Gentle IV fluids given low EF 01/18 Urine and blood culture growing ESBL E. coli Transition from meropenem to ertapenem per ID service recommendations Continue with doxycycline Clinically improving overall 01/19 Clinically improving Afebrile, blood pressure stable On room air Continue ertapenem IV Discussed with ID specialist Dr. Akira Farmer transition to Levaquin p.o. once patient is fully off amiodarone, QT interval below 500 To complete total of 2-week course of antibiotics 01/20 continues to improve overall transition to Levaquin 750mg po daily to complete 14 day course of antibiotic Non-ST elevated [place] Cardiomyopathy History of CAD s/p stent in 2008 Troponin 4063--> 12,000 EKG no acute ischemia Echo: EF 20 to 25% Patient asymptomatic as per patient Except aspirin not taking other medications Started on IV heparin Continue aspirin Start Coreg 3.125 mg twice daily with holding parameters and Lipitor 40 mg daily Cardiology consulted 01/18 S/p cardiac cath last night Found to have in-stent restenosis, drug-eluting stent to LAD placed Started on aspirin, Brilinta Amiodarone IV Entresto twice daily 01/19 Chest pain-free, no shortness of breath, no cardiac symptoms IV amiodarone discontinued Started on Toprol XL 50 mg p.o. twice daily, Aldactone 25 mg p.o. daily, Entresto twice daily Also on aspirin and Brilinta since cardiac cath Plan to repeat echocardiogram on Tuesday, January 23, 2024, If without improvement, patient will be placed on a LifeVest 01/20 no arrhythmia per TEle tolerating new meds Hyperglycemia History of diabetes Stopped taking his metformin and Januvia about 2 months ago Will give a dose of IV insulin [address] on Lantus and sliding scale Monitor blood sugars closely Follow HbA1c level: 11.3 Glycemic pharmacy consult 01/18 BSG 2 53-28 On insulin Lantus and sliding scale Pharmacy glycemic control service consulted 01/19 BSG's 111-205 Possible prostatitis Kidney stones CT scan done in the morning showed nonobstructing bilateral nephrolithiasis No ureteral calculi or hydronephrosis Prostatomegaly with findings of chronic outlet obstruction Urology consulted: Continue antibiotics, outpatient follow-up Mild splenomegaly on CAT scan Needs follow-up DVT prophylaxis Lovenox SC Disposition Pending Hopefully discharge to home with p.o. antibiotics upon discharge, vomiting cleared by cardiology service Admission and Anticipated Discharge Date Admission Date: January 18, 2024 Subjective ff up for sepsis, NSTEMI, etc seen resting in bed, comfortable, in good spirits feels fine overall no chest pain, dyspnea, palpitations, dizziness minimal dry cough, no abdominal pain, no fever/chills no other symptoms Review of Systems Review of Systems: all noted and negative except for above Physical Exam Physical Exam: General- oriented x 3, not in distress, speaks in sentences with no effort or accessory muscle use Eyes- anicteric Neck- no JVD Lungs- clear breath sounds bilaterally, no rales/wheezes Heart- normal rate, regular rhythm; no murmurs Abdomen- normal bowel sounds, nondistended, soft, no tenderness Extremities- no pretibial edema, no calf tenderness Neuro- alert, oriented x 3; no gross focal neurologic deficits Skin- warm & dry Results & Data Results & Data Vital Signs (Past 12 Hours) Vital Signs Temp Pulse Pulse Resp BP Pulse Ox O2 Del Method 01/21/24 11:14 36.7 C 78 18 149/89 H 97 Room Air 01/21/24 07:37 71 01/21/24 07:31 36.9 C 77 18 126/80 95 Room Air 01/21/24 01:54 36.7 C 74 18 122/76 95 Room Air all noted and reviewed including below
[2024-01-22 08:00] LABS: Albumin Globulin Ratio 1.3 (0.9-2); BUN Creatinine Ratio 12.8 (10-20); Bilirubin,Total 0.5 mg/dl (0.2-1.0); Calcium 8.5 mg/dl (8.6-10.3); Creatinine Clr Calc Pharmacy 98.6 ml/min; Est GFR (African American) 112.9 ml/min; Est GFR (Non-African American) 97.4 ml/min; Globulin 2.4 gm/dl (2.5-4.0); Magnesium 1.6 mg/dl (1.7-2.4); Phosphorus 3.9 mg/dl (2.5-4.9); Potassium 4.1 mmol/L (3.5-5.1); Total Protein 5.4 gm/dl (6.0-8.3)
[2024-01-22] MEDS: MAGNESIUM SULFATE / D5W 1 GM/100 ML BAG IV ONE (12:19)
[2024-01-22] MEDS: levoFLOXacin 750 MG TAB PO SCH (12:20)
--- NOTE | 2024-01-22 17:33 | Hospitalist Progress Note ---
Date of Service January 22, 2024 Assessment & Plan (1) Bacteremia: Plan: per admitting service notes with addendum: 63-year-old male with past med history significant for diabetes, history of multiple kidney stones, hypertension and CAD s/p stent in 2008 as per patient but currently not taking any medication except aspirin for last few months came to the ER in the morning because of hematuria last Tuesday and Tuesday and a lot of shaking chills and was worried about kidney stone and found to have UTI and possible prostatitis and hyperglycemia and was also tachycardic. Received fluids and Rocephin and was discharged on p.o. Bactrim as patient seemed to have appointment with his family doctor the next day. But the blood cultures came back positive for gram-negative bacilli and patient was called to come back to ER. Patient spiking temperature in the ER. Heart rate in 130s. Denies any chest pain or shortness of breath. Denies palpitations. Denies any headache currently. No runny nose or sore throat. No earache. Vision is okay. Current ly no nausea. Patient states initially had back and flank pain but currently no pains. Has some burning micturition. Currently no hematuria. Normal bowel movements. No swelling in the legs. No rash. Patient states because he lost weight his blood pressure is okay currently. Used to take Januvia and metformin but stopped 2 months ago. Used to be on take statin and generic Coreg but stopped about a month ago. Says he has an appointment tomorrow with his family doctor and he wants to start back on all the required medications. Sepsis secondary to: Bacteremia, ESBL E. coli Acute UTI, ESBL E. coli Pneumonia, Left Has fever and tachycardia and leukocytosis Lactic acid 1.4 CTA chest: no PE, (+) left sided pneumonia Resp biofire negative Blood culture: Gram-negative bacilli bacteremia Urine CUlture: " continue Meropenem and Doxycycline ID consulted Gentle IV fluids given low EF 01/18 Urine and blood culture growing ESBL E. coli Transition from meropenem to ertapenem per ID service recommendations Continue with doxycycline Clinically improving overall 01/19 Clinically improving Afebrile, blood pressure stable On room air Continue ertapenem IV Discussed with ID specialist Dr. Akira Farmer transition to Levaquin p.o. once patient is fully off amiodarone, QT interval below 500 To complete total of 2-week course of antibiotics 01/20 continues to improve overall transition to Levaquin 750mg po daily to complete 14 day course of antibiotic 01/21 Remains stable Repeat blood cultures obtained today Continue Levaquin 750 mg p.o. daily Non-ST elevated [place] Cardiomyopathy History of CAD s/p stent in 2008 Troponin 4063--> 12,000 EKG no acute ischemia Echo: EF 20 to 25% Patient asymptomatic as per patient Except aspirin not taking other medications Started on IV heparin Continue aspirin Start Coreg 3.125 mg twice daily with holding parameters and Lipitor 40 mg daily Cardiology consulted 01/18 S/p cardiac cath last night Found to have in-stent restenosis, drug-eluting stent to LAD placed Started on aspirin, Brilinta Amiodarone IV Entresto twice daily 01/19 Chest pain-free, no shortness of breath, no cardiac symptoms IV amiodarone discontinued Started on Toprol XL 50 mg p.o. twice daily, Aldactone 25 mg p.o. daily, Entresto twice daily Also on aspirin and Brilinta since cardiac cath Plan to repeat echocardiogram on Tuesday, January 23, 2024, If without improvement, patient will be placed on a LifeVest 01/20 no arrhythmia per TEle tolerating new meds 01/21 Continues to remain stable Repeat echocardiogram tomorrow, may need LifeVest before discharge Hyperglycemia History of diabetes Stopped taking his metformin and Januvia about 2 months ago Will give a dose of IV insulin [address] on Lantus and sliding scale Monitor blood sugars closely Follow HbA1c level: 11.3 Glycemic pharmacy consult 01/18 BSG 2 53-28 On insulin Lantus and sliding scale Pharmacy glycemic control service consulted 01/19 BSG's 111-205 01/21 Had BSG's in the 90s, symptomatic Lower insulin Lantus and sliding scale Possible prostatitis Kidney stones CT scan done in the morning showed nonobstructing bilateral nephrolithiasis No ureteral calculi or hydronephrosis Prostatomegaly with findings of chronic outlet obstruction Urology consulted: Continue antibiotics, outpatient follow-up Mild splenomegaly on CAT scan Needs follow-up DVT prophylaxis Lovenox SC Disposition Pending Anticipate discharge to home when medically stable, cleared by cardiology service Admission and Anticipated Discharge Date Admission Date: January 18, 2024 Subjective Follow-up for sepsis, NSTEMI, etc. Seen resting in bed side chair, comfortable, not in distress States he feels fine overall Had an episode of blood sugar in the 90s last night, symptomatic Improved with food/drink Otherwise feels fine overall No chest pain, shortness of breath No other new symptoms Review of Systems Review of Systems: all noted and negative except for above Physical Exam Physical Exam: General- oriented x 3, not in distress, speaks in sentences with no effort or accessory muscle use Eyes- anicteric Neck- no JVD Lungs- clear breath sounds bilaterally, no rales/wheezes Heart- normal rate, regular rhythm; no murmurs Abdomen- normal bowel sounds, nondistended, soft, nontender Extremities- no pretibial edema, no calf tenderness Neuro- alert, oriented x 3; no gross focal neurologic deficits Skin- warm & dry Results & Data Results & Data Vital Signs (Past 12 Hours) Vital Signs Temp Pulse Pulse Resp BP Pulse Ox O2 Del Method 01/22/24 15:27 36.7 C 73 18 117/73 96 Room Air 01/22/24 15:00 72 01/22/24 11:13 36.7 C 70 20 128/81 98 Room Air 01/22/24 07:34 36.9 C 79 18 129/77 94 Room Air 01/22/24 07:00 73 all noted and reviewed including below
[2024-01-22] MEDS: MAGNESIUM CHLORIDE W/CALCIUM 64MG DELAYED REL TAB PO SCH (20:55)
--- NOTE | 2024-01-22 21:42 | Electrocardiogram Report ---
Test Reason : Blood Pressure : */* mmHG Vent. Rate : 76 BPM Atrial Rate : 76 BPM P-R Int : 138 ms QRS Dur : 62 ms QT Int : 432 ms P-R-T Axes : 70 31 175 degrees QTcB Int : 486 ms Normal sinus rhythm Low voltage QRS Anterior infarct T wave abnormality, consider lateral ischemia Prolonged QT Abnormal ECG When compared with ECG of 20-Jan-2024 10:12, QT has shortened Confirmed by Chris Sagastume ([id number] on 01/22/2024 9:42:02 PM Referred By: Cornelio Sauceda Confirmed By: Chris Sagastume
[2024-01-23] MEDS: INSULIN ASPART PER UNIT CHARGE SC SCH (03:51)
[2024-01-23 07:24] VITALS: RESP 18
[2024-01-23 08:22] LABS: Albumin Globulin Ratio 1.3 (0.9-2); Albumin Level 3.4 gm/dl (3.4-5.0); BUN Creatinine Ratio 11.2 (10-20); Bilirubin,Total 0.6 mg/dl (0.2-1.0); Calcium 8.9 mg/dl (8.6-10.3); Creatinine Clr Calc Pharmacy 86.5 ml/min; Est GFR (Non-African American) 92.3 ml/min; Globulin 2.6 gm/dl (2.5-4.0); Magnesium 1.6 mg/dl (1.7-2.4); Phosphorus 3.7 mg/dl (2.5-4.9); Potassium 3.8 mmol/L (3.5-5.1)
[2024-01-23] MEDS: LANTUS PER UNIT CHARGE SC SCH (08:22)
[2024-01-23] MEDS ORDERED: LANTUS PER UNIT CHARGE SC SCH ×2 (09:00→21:00)
--- NOTE | 2024-01-23 10:24 | Cardiology Progress Note ---
Date of Service January 23, 2024 Assessment & Plan (1) Acute non-ST elevation myocardial infarction (NSTEMI): (2) Status post insertion of drug-eluting stent into left anterior descending (LAD) artery: (3) Ischemic cardiomyopathy: (4) NSVT (nonsustained ventricular tachycardia): (5) Sepsis due to Gram negative bacteria: (6) Hypomagnesemia: (7) Hypokalemia: (8) Noncompliance: Plan 63-year-old male presenting with gram negative sepsis and NSTEMI without anginal symptoms. Blood culture positive for E. coli ESBL. Patient developed nonsustained ventricular tachycardia on telemetry. Urgent cardiac catheterization performed demonstrating 99% mid LAD stenosis. Drug-eluting stent implanted without complication. HR and BP currently well controlled Magnesium level noted to be low, additional 2 gm IV Magnesium already ordered continue to monitor replace electrolytes as necessary, recommend magnesium greater than 2 and potassium greater than 4 Continue ASA, atorvastatin, Brilinta, spironolactone, and Toprol-XL. Continue dual antiplatelet therapy for minimum of 1 year post percutaneous intervention. Entresto 26/24 mg started 01/19/2024. 01/23/2024 Patient doing well this morning LV systolic function has improved. No indications for LifeVest at this time no arrhythmias on telemetry Patient on guideline directed optimal medical regimen with good tolerance Stable for discharge today Follow-up cardiology 2 to 4 weeks Admission and Anticipated Discharge Date Admission Date: January 18, 2024 Subjective Patient seen and examined, chart, medications, telemetry reviewed. "Feels great" No chest pain or shortness of breath no dizziness or lightheadedness. Ambulatory in room without difficult Review of Systems Review of Systems: All systems reviewed & are unremarkable except as noted in Subjective Physical Exam Constitutional: WD/WN, vitals as above no acute distress Eyes: PERRL, conjunctivae normal, anicteric sclerae ENMT: external ear and nose normal, oropharynx normal Neck: trachea midline, no thyromegaly Respiratory: normal respiratory effort, lungs clear to auscultation Cardiovascular: RRR, no murmur, no edema Vessels: no JVD Extremities: no edema Gastrointestinal (Abdomen): normal bowel sounds, soft, nontender, no hepatosplenomegaly Results & Data Vital Signs (Past 12 Hours) Vital Signs Temp Pulse Pulse Resp BP Pulse Ox O2 Del Method 01/23/24 07:24 36.7 C 67 18 119/72 94 Room Air 01/23/24 07:00 93 H 01/23/24 03:41 36.7 C 67 16 128/78 95 Room Air 01/22/24 23:03 36.7 C 65 14 126/77 93 Room Air Laboratory Results Laboratory Results - last 24 hr 01/22/24 01/22/24 01/22/24 10:54 16:21 20:36 Sodium Potassium Chloride Carbon Dioxide Anion Gap BUN Creatinine Est Cr Clr Drug Dosing Est GFR ( Amer) Est GFR (Non-Af Amer) BUN/Creatinine Ratio Glucose POC Glucose 179 H 97 158 H Calcium Phosphorus Magnesium Total Bilirubin AST ALT Alkaline Phosphatase Total Protein Albumin Globulin Albumin/Globulin Ratio 01/23/24 01/23/24 01/23/24 03:43 07:22 07:38 Sodium 139 Potassium 3.8 Chloride 103 Carbon Dioxide 30 Anion Gap 6 BUN 10 Creatinine 0.89 Est Cr Clr Drug Dosing 86.5 Est GFR ( Amer) 107.0 Est GFR (Non-Af Amer) 92.3 BUN/Creatinine Ratio 11.2 Glucose 120 H POC Glucose 97 115 H Calcium 8.9 Phosphorus 3.7 Magnesium 1.6 L Total Bilirubin 0.6 AST 28 ALT 33 Alkaline Phosphatase 87 Total Protein 6.0 Albumin 3.4 Globulin 2.6 Albumin/Globulin Ratio 1.3 Diagnostic Findings Echocardiogram today 01/23/2024: Significantly improved LV systolic function EF 45 to 50% with LAD apical wall motion abnormality
[2024-01-23 11:59] VITALS: BP 131/79; TEMP 98.2; O2SAT 96
--- NOTE | 2024-01-23 13:44 | Pharmacy Report ---
Pharmacy Glycemic Short Note 2 - Date of Service January 23, 2024 - Glycemic Short BSG Results (Last 24 hours): 01/22/24 01/22/24 01/23/24 16:21 20:36 03:43 Glucose POC Glucose 97 158 H 97 01/23/24 01/23/24 01/23/24 07:22 07:38 11:16 Glucose 120 H POC Glucose 115 H 196 H OUTPATIENT ANTIDIABETIC REGIMEN: * N/A * Previously prescribed metformin and Januvia, but stopped taking HbA1c: 11.3% (01/18/24) ASSESSMENT: 01/23/24: * Blood sugars reasonably controlled over the weekend w/ downward trend last evening (BSG of 97 mg/dL at dinner) * Fasting blood sugar of 115 mg/dL this morning * Will allow for decreased basal dose today (via scale at HS) and will loosen Novolog parameters 01/20/24: * Patient received total 60 units of insulin yesterday; 26 units basal and 34 units bolus. * BSGs yesterday were all elevated yesterday. Fasting BSG today was 176 mg/dl. Pre-lunch BSG higher at 228 mg/dl. * Basal insulin increased to 35 units this morning which is around 30% increase from yesterday but added in the bolus insulins that patient got overnight last night. Also added a HS scale for tonight based on BSG * Novolog parameters tightened. 01/19/24: * Patient received total 48 units of insulin yesterday: 18 units basal and 30 units bolus. * Blood sugars trended down yesterday but fasting BSG today AM was elevated at 256 mg/dl. So AM basal dose increased to stress between 2 and 3. * Pre-lunch BSG trended up to 298 mg/dl. Additional basal dose of 10 units added for noon to total 26 units for today (double stress of 2). No basal insulin ordered for HS. * Novolog parameters were tightened for breakfast and tightened again at lunch but will loosen back up for dinner so that blood sugars don't trend down too much. 01/18/24: * CHELA is a 63 year old male w/ gram-negative bacteremia secondary to UTI vs. multifocal pneumonia * Receiving meropenem and doxycycline * Blood sugars > 400 mg/dL on presentation, pharmacy consulted for glycemic management * Received 12 units of Lantus, 10 units of IV regular insulin, and 18 units of SC bolus this morning * Blood sugars are now much improved, 128 mg/dL at lunchtime * On heparin gtt (mixed in dextrose) * Will be conservative w/ ongoing insulin orders today PLAN FOR INPATIENT GLYCEMIC CONTROL: * Basal insulin * Lantus 25 units SC QAM * Lantus 0- 5-10 units scale SC HS based on BSG * Will re-assess dosing tomorrow. * Bolus insulin * NovoLog per scale ACHS or Q6hrs while NPO * Goal Range: Low 110 mg/dL - High 140 mg/dL * Correction Factor: 20 mg/dL/unit * Nutritional / Prandial insulin per carb ratio of 1 unit per 6 grams CHO consumed
[2024-01-23 14:09] VITALS: PULSE 82
--- NOTE | 2024-01-24 13:24 | Discharge Summary ---
Discharge Summary Date of Service January 24, 2024 delayed entry date of service 01/23/24 Principal Dx & Hospital Course #1 = Principal Diagnosis (1) Bacteremia: per admitting service notes with addendum: 63-year-old male with past med history significant for diabetes, history of multiple kidney stones, hypertension and CAD s/p stent in 2008 as per patient but currently not taking any medication except aspirin for last few months came to the ER in the morning because of hematuria last Tuesday and Tuesday and a lot of shaking chills and was worried about kidney stone and found to have UTI and possible prostatitis and hyperglycemia and was also tachycardic. Received fluids and Rocephin and was discharged on p.o. Bactrim as patient seemed to have appointment with his family doctor the next day. But the blood cultures came back positive for gram-negative bacilli and patient was called to come back to ER. Patient spiking temperature in the ER. Heart rate in 130s. Denies any chest pain or shortness of breath. Denies palpitations. Denies any headache currently. No runny nose or sore throat. No earache. Vision is okay. Currently no nausea. Patient states initially had back and flank pain but currently no pains. Has some burning micturition. Currently no hematuria. Normal bowel movements. No swelling in the legs. No rash. Patient states because he lost weight his blood pressure is okay currently. Used to take Januvia and metformin but stopped 2 months ago. Used to be on take statin and generic Coreg but stopped about a month ago. Says he has an appointment tomorrow with his family doctor and he wants to start back on all the required medications. Sepsis secondary to: Bacteremia, ESBL E. coli Acute UTI, ESBL E. coli Pneumonia, Left Has fever and tachycardia and leukocytosis Lactic acid 1.4 CTA chest: no PE, Pneumonia is seen predominantly in the left lung. Trace bilateral pleural effusions are seen. Reactive lymph nodes are seen. Hepatic Steatosis Resp biofire negative Blood culture: E coli ESBL Urine CUlture: E coli ESBL given IV Meropenem and Doxycycline ID consulted clinically improved Discussed with ID specialist Dr. Champion transition to Levaquin 750mg po daily to complete 14 day course of antibiotic Repeat blood cultures: negative x 48 hours repeat lung imagin n 4-6 weeks Non-ST elevated AR Cardiomyopathy History of CAD s/p stent in 2008 Troponin 4063--> 12,000 EKG no acute ischemia Echo: EF 20 to 25% Patient asymptomatic as per patient Except aspirin not taking other medications 01/17 S/p cardiac cath last night Found to have in-stent restenosis, drug-eluting stent to LAD placed Started on aspirin, Brilinta Amiodarone IV Entresto twice daily 01/22 Chest pain-free, no shortness of breath, no cardiac symptoms IV amiodarone discontinued Started on Toprol XL 50 mg p.o. twice daily, Aldactone 25 mg p.o. daily, Entresto twice daily Also on aspirin and Brilinta since cardiac cath repeat echo: LV systolic function has improved No indications for LifeVest at this time no arrhythmias on telemetry If without improvement, patient will be placed on a LifeVest ff up with [facility] in 2 weeks Hyperglycemia DM 2 Stopped taking his metformin and Januvia about 2 months ago HbA1c level: 11.3 Glycemic pharmacy consult Sales Development Manager consulted D/C on Semglee 20 units in AM Metformin 500mg BID close ff up with PCP Possible prostatitis Kidney stones CT scan done in the morning showed nonobstructing bilateral nephrolithiasis No ureteral calculi or hydronephrosis Prostatomegaly with findings of chronic outlet obstruction Urology consulted: Continue antibiotics, outpatient follow-up Mild splenomegaly on CAT scan Needs follow-up Disposition d/c home PCP ff up in 1 week Cardiology, Urology ff up in 2 weeks Notes For Next Care Provider Medication Changes From Visit per medication reconciliation sheet Admission HPI Per Admitting Provider 63-year-old male with past med history significant for diabetes, history of multiple kidney stones, hypertension and CAD s/p stent in 2008 as per patient but currently not taking any medication except aspirin for last few months came to the ER in the morning because of hematuria last Tuesday and Tuesday and a lot of shaking chills and was worried about kidney stone and found to have UTI and possible prostatitis and hyperglycemia and was also tachycardic. Received fluids and Rocephin and was discharged on p.o. Bactrim as patient seemed to have appointment with his family doctor the next day. But the blood cultures came back positive for gram-negative bacilli and patient was called to come back to ER. Patient spiking temperature in the ER. Heart rate in 130s. Denies any chest pain or shortness of breath. Denies palpitations. Denies any headache currently. No runny nose or sore throat. No earache. Vision is okay. Currently no nausea. Patient states initially had back and flank pain but currently no pains. Has some burning micturition. Currently no hematuria. Normal bowel movements. No swelling in the legs. No rash. Patient states because he lost weight his blood pressure is okay currently. Used to take Januvia and metformin but stopped 2 months ago. Used to be on take statin and generic Coreg but stopped about a month ago. Says he has an appointment tomorrow with his family doctor and he wants to start back on all the required medications. Past medical history. As mentioned above. Past surgical history. Lithotripsy twice cardiac cath status post and placement. 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 Social history. Smokes cigars once in a while. Drinks 2 beers couple times a week. Denies any drug use Family history. Mother had breast cancer. Father had heart disorder. Father had heart disorder. Admission Exam Per Admitting Provider General- Not in acute distress Head- atraumatic Eyes- PERRL. ENT- oropharynx clear Neck- supple, no JVD. Lungs- clear to auscultation no wheezing or crackles Heart- regular rhythm;Tachycardia no murmur, no gallop. Abdomen- normal bowel sounds, soft, nontender, no distension Extremities- no pretibial edema, no erythema seen Neuro- alert, oriented PERRL, no facial palsy; no dysarthria; moves extremities Discharge Exam General- oriented x 3, not in distress, speaks in sentences with no effort or accessory muscle use Eyes- anicteric Neck- no JVD Lungs- clear breath sounds bilaterally, no rales/wheezes Heart- normal rate, regular rhythm; no murmurs Abdomen- normal bowel sounds, nondistended, soft, nontender Extremities- no pretibial edema, no calf tenderness Neuro- alert, oriented x 3; no gross focal neurologic deficits Skin- warm & dry Updated Medication List Medication Instructions Recorded Confirmed Type L.acidop,casei,lactis,rham-B.lact,bella 1 cap PO DAILY 30 days #30 caps 01/23/24 Rx 625 mg (10 billion cell) capsule (Advanced Probiotic) aspirin 81 mg tablet,delayed 81 mg PO QAM 30 days #30 tabs 01/23/24 Rx release atorvastatin 40 mg tablet 80 mg (2 x 40 mg) PO QAM 30 days 01/23/24 Rx #60 tabs blood sugar diagnostic (OneTouch #100 ea 01/23/24 Rx Ultra Test strips) blood-glucose meter (OneTouch #1 ea 01/23/24 Rx Ultra2 Meter) insulin glargine-yfgn 100 unit/mL 20 unit (0.2 mL) subcut QAM 30 01/23/24 Rx (3 mL) subcutaneous pen ( #6 mL (insulin glargine-yfgn) Pen) lancets 33 gauge (OneTouch Delica #100 ea 01/23/24 Rx Plus Lancet) levofloxacin 750 mg tablet 750 mg PO DAILY@1100 8 days #8 tabs 01/23/24 Rx magnesium chloride 64 mg 64 mg PO DAILY 30 days #30 tabs 01/23/24 Rx (magnesium chloride) tablet,delayed release (Mag 64) metformin 500 mg tablet 500 mg PO BID 30 days #60 tabs 01/23/24 Rx metoprolol succinate 50 mg 50 mg PO BID 30 days #60 tabs 01/23/24 Rx tablet,extended release 24 hr pen needle, diabetic 32 gauge x #100 ea 01/23/24 Rx 5/32" (Pen Needle) sacubitril 24 mg-valsartan 26 mg 1 tab PO BID 30 days #60 tabs 01/23/24 Rx tablet (Entresto) spironolactone 25 mg tablet 25 mg PO QAM 30 days #30 tabs 01/23/24 Rx ticagrelor 90 mg tablet (Brilinta) 90 mg PO BID 30 days #60 tabs 01/23/24 Rx Hospital Stay Data Consultations 01/18/24 04:13 ED Decision to Admit Stat 01/18/24 07:41 Consult Infectious Diseases Routine 01/18/24 08:00 Consult Cardiology Routine Consult Urology Routine Procedures Performed Operation Date: 01/18/24 16:00 Actual Procedures p Cineradiography w/Routine Exam - Laurent Garces MD, PhD p Cath, Coronaries ONLY (no LV) - Laurent Garces MD, PhD s Drug Eluting Stent SGl Vessel - Laurent Garces MD, PhD Diagnostic Imagining Performed Laboratory Results WBC 7.54 K/ul (4.8-10.8) 01/21/24 07:33 RBC 4.80 M/uL (4.70-6.10) 01/21/24 07:33 Hgb 14.1 g/dl (14.0-18.0) 01/21/24 07:33 Hct 40.7 % (42.0-52.0) L 01/21/24 07:33 MCV 84.8 fL (80.0-100.0) 01/21/24 07:33 MCH 29.4 pg (25.0-34.0) 01/21/24 07: MCHC 34.6 g/dL (32.0-36.0) 01/21/24 07:33 RDW Std Deviation 37.5 fL (36.4-46.3) 01/21/24 07: RDW Coeff of Quoc 12.1 % (11.5-14.5) 01/21/24 07:33 Plt Count 216 K/uL (130-400) 01/21/24 07:33 MPV 9.3 fL (9.4-12.4) L 01/21/24 07:33 Immature Gran % (Auto) 1.1 % 01/21/24 07:33 Neut % (Auto) 76.0 % 01/21/24 07:33 Lymph % (Auto) 15.6 % 01/21/24 07:33 [place] % (Auto) 6.8 % 01/21/24 07:33 Eos % (Auto) 0.1 % 01/21/24 07:33 Baso % (Auto) 0.4 % 01/21/24 07:33 Neut # (Auto) 5.73 K/uL (1.40-6.50) 01/21/24 07:33 Lymph # (Auto) 1.18 K/uL (1.20-3.40) L 01/21/24 07:33 [place] # (Auto) 0.51 K/uL (0.11-0.59) 01/21/24 07:33 Eos # (Auto) 0.01 K/uL (0.00-0.50) 01/21/24 07:33 Baso # (Auto) 0.03 K/uL (0.00-0.20) 01/21/24 07:33 Immature Gran # (Auto) 0.08 K/uL (0.01-0.20) 01/21/24 07:33 PT 10.8 Seconds (9.0-12.0) 01/18/24 02:04 INR 1.0 (0.9-1.1) 01/18/24 02:04 APTT 26 Seconds (21-31) 01/18/24 02:04 PTT Ratio 1.0 01/18/24 02:04 Activ Coag Time Kaolin 220 SECONDS (94-140) H 01/18/24 17:20 Heparin Anti-Xa, Unfract 0.21 IU/ml (0.3-0.7) L 01/18/24 15:13 Sodium 139 mmol/L (136-145) 01/23/24 07:38 Potassium 3.8 mmol/L (3.5-5.1) 01/23/24 07:38 Chloride 103 mmol/L (98-107) 01/23/24 07:38 Carbon Dioxide 30 mmol/L (21-32) 01/23/24 07:38 Anion Gap 6 (3-11) 01/23/24 07:38 BUN 10 mg/dl (6-23) 01/23/24 07:38 Creatinine 0.89 mg/dl (0.6-1.4) 01/23/24 07:38 Est Cr Clr Drug Dosing 86.5 ml/min 01/23/24 07:38 Est GFR ( Amer) 107.0 ml/min 01/23/24 07:38 Est GFR (Non-Af Amer) 92.3 ml/min 01/23/24 07:38 BUN/Creatinine Ratio 11.2 (10-20) 01/23/24 07:38 Glucose 120 mg/dl (70-99(Fasting)) H 01/23/24 07:38 POC Glucose 196 mg/dl (70-99) H 01/23/24 11:16 Fasting Glucose 205 mg/dl (70-99) H 01/20/24 14:53 Estimat Average Glucose 278 mg/dl 01/18/24 07:07 Hemoglobin A1c 11.3 % (4.5-5.6) H 01/18/24 07:07 Lactate 1.4 mmol/L (0.4-2.0) 01/18/24 02:04 Calcium 8.9 mg/dl (8.6-10.3) 01/23/24 07:38 Ionized Calcium 1.13 mmol/L (1.12-1.32) 01/18/24 15:13 Phosphorus 3.7 mg/dl (2.5-4.9) 01/23/24 07:38 Magnesium 1.6 mg/dl (1.7-2.4) L 01/23/24 07:38 Total Bilirubin 0.6 mg/dl (0.2-1.0) 01/23/24 07:38 Direct Bilirubin 0.2 mg/dl (0-0.2) 01/18/24 02:04 AST 28 U/L (13-39) 01/23/24 07:38 ALT 33 U/L (7-52) 01/23/24 07:38 Alkaline Phosphatase 87 U/L (34-104) 01/23/24 07:38 Troponin I High Sens 29158.0 pg/ml (0-20) H* D 01/19/24 08:38 Total Protein 6.0 gm/dl (6.0-8.3) 01/23/24 07:38 Albumin 3.4 gm/dl (3.4-5.0) 01/23/24 07:38 Globulin 2.6 gm/dl (2.5-4.0) 01/23/24 07:38 Albumin/Globulin Ratio 1.3 (0.9-2) 01/23/24 07:38 Triglycerides 212 mg/dl (0-150) H 01/18/24 07:07 Cholesterol 111 mg/dl (0-200) 01/18/24 07:07 LDL Cholesterol, Calc 57 mg/dl 01/18/24 07:07 VLDL Cholesterol, Calc 42 mg/dl (0-30) H 01/18/24 07:07 HDL Cholesterol 12 mg/dl 01/18/24 07:07 Cholesterol/HDL Ratio 9.3 (0-5) H 01/18/24 07:07 Procalcitonin 9.39 ng/ml (0-0.5) H 01/18/24 02:04 Adenovirus (PCR) Not Detected (NotDetected) 01/18/24 03:47 B. pertussis DNA (PCR) Not Detected (NotDetected) 01/18/24 03:47 B.parapertussis DNA PCR Not Detected (NotDetected) 01/18/24 03:47 C. pneumoniae DNA (PCR) Not Detected (NotDetected) 01/18/24 03:47 Coronavirus OC43 (PCR) Not Detected (NotDetected) 01/18/24 03:47 Coronavirus HKU1 (PCR) Not Detected (NotDetected) 01/18/24 03:47 Coronavirus 229E (PCR) Not Detected (NotDetected) 01/18/24 03:47 SARS-CoV-2 (PCR) Not Detected (NotDetected) 01/18/24 03:47 Coronavirus NL63 (PCR) Not Detected (NotDetected) 01/18/24 03:47 Human Metapneumovir PCR Not Detected (NotDetected) 01/18/24 03:47 Influenza Type A (PCR) Not Detected (NotDetected) 01/18/24 03:47 Influenza Type B (PCR) Not Detected (NotDetected) 01/18/24 03:47 M. pneumoniae (PCR) Not Detected (NotDetected) 01/18/24 03:47 Parainfluenza 1 (PCR) Not Detected (NotDetected) 01/18/24 03:47 Parainfluenza 2 (PCR) Not Detected (NotDetected) 01/18/24 03:47 Parainfluenza 3 (PCR) Not Detected (NotDetected) 01/18/24 03:47 Parainfluenza 4 (PCR) Not Detected (NotDetected) 01/18/24 03:47 RSV (PCR) Not Detected (NotDetected) 01/18/24 03:47 Entero/Rhino (PCR) Not Detected (NotDetected) 01/18/24 03:47 Impressions ABDOMEN AND PELVIS CT WITHOUT CONTRAST CT DOSE: 744.19 mGy.cm HISTORY: Acute hematuria with flank pain hematuria, tomas flank pain TECHNIQUE: Multiaxial CT images of the abdomen and pelvis were performed without contrast. A dose lowering technique was utilized adhering to the principles of ALARA. COMPARISON STUDY: 10/20/2009 FINDINGS: Extensive coronary artery calcifications. Lung bases are generally clear. There is no free air. Spleen is mildly enlarged at 13.7 cm. Unremarkable pancreas, gallbladder and adrenal glands. The liver is within normal limits. Nonspecific bilateral perinephric stranding. There are several nonobstructing punctate bilateral renal calculi. 4 mm nonobstructing calculus of the superior pole right kidney. 5 mm calculus of the inferior pole left kidney. No ureteral calculi or hydronephrosis. Prostatomegaly. Minimal bladder wall thickening with partial distention and perivesicular stranding. Atherosclerosis of the aorta. No lymphadenopathy. Surgical clips of the scrotum. No bowel obstruction. Mild wall thickening of the proximal ascending colon, likely secondary to partial distention. Moderate colonic fecal retention. Normal appendix. No acute fracture. IMPRESSION: 1. Nonobstructing bilateral nephrolithiasis. 2. No ureteral calculi or hydronephrosis. 3. Prostamegaly with findings suggestive of chronic outlet obstruction. 4. No bowel obstruction or pneumoperitoneum. 5. Mild splenomegaly. ACT 112: Negative or not required by law. The above report was generated using voice recognition software. It may contain grammatical, syntax or spelling errors. Electronically signed by: Willian Genao M.D. 01/17/2024 10:33 AM Chest X-Ray 01/18/24 01:58 XR chest 1V portable CLINICAL HISTORY: Sepsis TECHNIQUE: Single frontal radiograph of the chest was obtained. Comparison: None available at the time of this dictation. FINDINGS: No lines and tubes are seen. The cardiomediastinal silhouette is normal. Left midlung airspace opacities are seen. No evidence of pleural effusion or pneumothorax. IMPRESSION: Left midlung airspace opacities may represent atelectasis, pneumonia, and/or aspiration. ACT 112: Negative or not required by law. Electronically signed by: Raimundo Tabares M.D. 01/18/2024 7:46 AM Chest CTA 01/18/24 03:04 Exam(s): CTA CHEST IV Amt: 118 ml optiray 320 EXAM: CT Angiography Chest With Intravenous Contrast CLINICAL HISTORY: Reason for exam: PE. TECHNIQUE: Axial computed tomographic angiography images of the chest with intravenous contrast. CTDI is 36.96 mGy and DLP is 604.23 mGy-cm. Automated exposure control was utilized for the study. A dose lowering technique was utilized adhering to the principles of ALARA. MIP reconstructed images were created and reviewed. COMPARISON: No relevant prior studies available. FINDINGS: Pulmonary arteries: Unremarkable. No pulmonary embolism. Aorta: Atherosclerotic changes of the aorta. No thoracic aortic aneurysm. Lungs: Patchy ground-glass airspace consolidation throughout the LEFT lung, consistent with multilobar pneumonia. Pleural space: Unremarkable. No significant effusion. No pneumothorax. Heart: Cardiomegaly. No significant pericardial effusion. No evidence of RV dysfunction. Bones/joints: Degenerative changes of the spine. No acute fracture. No dislocation. Soft tissues: Unremarkable. Lymph nodes: Unremarkable. No enlarged lymph nodes. Liver: Hepatic steatosis. IMPRESSION: 1. No pulmonary embolism. 2. Patchy ground-glass airspace consolidation throughout the LEFT lung, consistent with multilobar pneumonia. Electronically signed by: Jona Wadsworth MD 01/18/24 04:[address] 01/18/24 10:46 CT chest diagnostic wo con CLINICAL HISTORY: r/o pneumonia, pleural effusion TECHNIQUE: Multidetector row helical CT of the chest was performed. Coronal and sagittal reformations were obtained. Automated dose lowering techniques and/or adjustment according to patient size were utilized for this exam. CT DOSE: 476.48 mGy.cm Comparison: Comparison is made to CT chest 01/18/2024 FINDINGS: Lungs and pleura: Atelectasis versus scarring is seen in the dependent portions of the lungs. Trace bilateral pleural effusions are seen. There are patchy groundglass opacities predominantly in the left lung, similar in extent to prior exam. Heart and pericardium: Heart size is normal. No pericardial effusion. Vessels: Severe atherosclerotic changes in the aorta and coronary arteries. Mediastinum and jackelyn: Subcentimeter lymph nodes are seen. Chest wall and lower neck: Unremarkable. Abdomen: Unremarkable. Bones: Degenerative changes in the thoracic spine. IMPRESSION: Pneumonia is seen predominantly in the left lung. Trace bilateral pleural effusions are seen. Reactive lymph nodes are seen. ACT 112: Negative or not required by law. Electronically signed by: Raimundo Tabares M.D. 01/18/2024 2:45 PM Pending Results Patient Have Any Pending Studies at Discharge: No Discharge Instructions Given to Patient (Per Discharging Provider) PLEASE REFER TO YOUR NEW MEDICATION LIST AND FOLLOW INSTRUCTIONS CAREFULLY. Make sure to take aspirin and Brilinta every single day to prevent cardiac stent occlusion. Please take a probiotic daily for at least 2 months. Renew Life brand recommended. PLEASE CALL YOUR PRIMARY CARE PHYSICIAN OR RETURN TO THE ER IF WITH WORSENING OF SYMPTOMS, INCLUDING Chest pain, shortness of breath, palpitations, dizziness Fever or chills, nausea vomiting, abdominal pain, problems with urination, etc. FOLLOW UP WITH PRIMARY CARE PHYSICIAN OUTLINED ABOVE. Follow-up with tax collector in 2 weeks. Total Time Total Time Spent Total Time Spent (In Minutes): 40 minutes
== END 2024-01-23 15:39 | disposition home or self-care (01) | DRG 853 ==
LOC: ED 01:31 → SUATTDRO 03:12 → EDINP 03:12 → 2S 05:53
PROC: CLB.CCO (2024-01-18 16:00)